=== PATIENT | female | born 1935 | race Two or more races ===

== ENCOUNTER 2025-04-02 08:11 | Inpatient (IN) | payer OTHER, MEDICARE ==
[~2025-04-02] VITALS: Ht 157.5 cm; Wt 60.1 kg
--- NOTE | 2025-04-02 08:29 | ED.PDOC ---
GI ASSESSMENT HPI Comments 89 year old female with PMHx Dementia, HTN presents to the ED via EMS with a chief complaint of abdominal pain onset 2 days. Per EMS, patient's home health nurse called 911 due to patient experiencing diffused abdominal pain, abdominal distension, constipation, nausea, vomiting, poor appetite for the past 2 days. According to home health nurse, patient's baseline is A&Ox1. No other symptoms or modifying factors present at this time. Chief Complaint: Abdominal Pain Time Seen by MD: 08:15 Reviewed Notes: Medications, Allergies Allergies: Coded Allergies: No Known Drug Allergy (Verified Allergy, Unknown, 04/02/25) Information Source: Patient, Emergency Med Personnel Mode of Arrival: EMS Timing: Days Duration: Since onset Prehospital treatment: None Quality: Sharp Severity: Moderate Recent: None Recent Hx of: None Pain Location: Diffuse Modifying Factors: Nothing Associated sign and symptoms: Nausea, Vomiting, Constipation, Abdominal Pain Past Medical History PAST MEDICAL HISTORY: Dementia, HTN Surgical History: Denies all surgeries ROUTE SERVICE MANAGER History: No Pertinent ROUTE SERVICE MANAGER History Family History Family History: Reviewed,noncontributory to illness, No family hx of Cancer, No family hx of DM, No family hx of Heart yelitza, No family hx of HTN, No family hx ofKidney yelitza, No family hx of Liver yelitza, No family hx of Lung yelitza, No family hx of Stroke Social History Smoker: Non-Smoker Alcohol: Denies ETOH Use Drugs: Denies Drug Use Lives In: Home Constitutional: denies: chills, diaphoresis, fatigue, fever, malaise, sweats, weakness, others EENTM: denies: blurred vision, double vision, ear bleeding, ear discharge, ear drainage, ear pain, ear ringing, eye pain, eye redness, hearing loss, mouth pain, mouth swelling, nasal discharge, nose bleeding, nose congestion, nose pain , photophobia, tearing, throat pain, throat swelling, voice changes, others Respiratory: denies: cough, hemoptysis, orthopnea, SOB at rest, shortness of breath, SOB with excertion, stridor, wheezing, others Cardiovascular: denies: chest pain, dizzy spells, diaphoresis, Dyspnea on exertion, edema, irregular heart beat, left arm pain, lightheadedness, palpitations, PND, syncope, others Gastrointestinal: reports: abdomen distended, abdominal pain, constipated, nausea, poor appetite, vomiting; denies: blood streaked bowels, diarrhea, dysphagia, difficulty swallowing, hematemesis, melena, poor fluid intake, rectal bleeding, rectal pain, others Genitourinary: denies: abnormal vagina bleeding, burning, dyspareunia, dysuria, flank pain, frequency, hematuria, incontinence, pain, , vagina discharge, urgency, others Neurological: denies: dizziness, fainting, headache, left sided numbness, left sided weakness, numbness, paresthesia, pre-existing deficit, right sided numbness, right sided weakness, seizure, speech problems, tingling, tremors, weakness, others Musculoskeletal: denies: back pain, gout, joint pain, joint swelling, muscle pa in, muscle stiffness, neck pain, others Integumetry: denies: bruises, change in color, change in hair/nails, dryness, laceration, lesions, lumps, rash, wounds, others Allergic/Immunocompromised: denies: Difficulty Healing, Frequent Infections, Hives, Itching, others Hematologic/Lymphatic: denies: anemia, blood clots, easy bleeding, easy bruising, swollen glands, others Endocrine: denies: excessive hunger, excessive sweating, excessive thirst, excessive urination, flushing, intolerance to cold, intolerance to heat, unexplained weight gain, unexplained weight loss, others Psychiatric: denies: anxiety, bipolar disorder, depression, hopeless, panic disorder, schizophrenia, sleepless, suicidal, others All Other Systems: Reviewed and Negative Physical Exam General Appearance: Moderate Distress HEENT: Normal ENT Inspection, Pharynx Normal, TMs Normal Neck: Full Range of Motion, Non-Tender, Normal, Normal Inspection Respiratory: Chest Non-Tender, Lungs Clear, No Accessory Muscle Use, No Respiratory Distress, Normal Breath Sounds Cardiovascular: Bradycardia, No Edema, No JVD, No Murmur, No Gallop, Normal Peripheral Pulses Breast Exam: Deferred Gastrointestinal: No Organomegaly, Non Tender, No Pulsatile Mass, Normal Bowel Sounds, Soft Genitalia: Deferred Pelvic: Deferred Rectal: Deferred Extremities: No calf tenderness, Normal capillary refill, Normal inspection, Normal range of motion, Non-tender, No pedal edema Musculoskeletal : Apperance: Normal Neurologic: Alert, site coordinator II-XII nml as Tested, No Motor Deficits, Normal Affect, Normal Mood, No Sensory Deficits Cerebellar Function: NOT DONE Reflexes: NOT DONE Skin: Dry, Normal Color, Warm Peripheral Pulses: 3+ Radial (R), 3+ Radial (L) Lymphatic: No Adenopathy EKG EKG : Pulse Rate (adult): 55 Cardiac Rhythm: NSR Was a procedure done? Was a procedure done?: No GI differential Dx Differential Diagnosis: Constipation, Diverticular disease, Esophagitis, Gastritis/PUD, Gastroenteritis, Dehydration, Electrolyte Imbalance, Bacterial, Viral X-Ray, Labs, Meds, VS Vital Signs Date Time Temp Pulse Resp B/P (MAP) Pulse Ox O2 Delivery O2 Flow Rate FiO2 04/02/25 09:25 98.0 52 10 144/79 (100) 97 98.0 04/02/25 08:30 55 04/02/25 08:21 55 04/02/25 08:11 97.7 57 18 134/84 98 97.7 Lab Test 04/02/25 08:45 Range/Units White Blood Count 11.3 H 4.4-10.8 10^3/uL Red Blood Count 5.60 H 4.0-5.20 10^6/uL Hemoglobin 14.4 12.2-16.2 g/dL Hematocrit 45.8 36.0-46.0 % Mean Corpuscular Volume 81.7 80.0-100.0 fL Mean Corpuscular Hemoglobin 25.8 L 28.0-32.0 pg Mean Corpuscular Hemoglobin Concent 31.5 L 32.0-36.0 g/dL Red Cell Distribution Width 14.5 H 11.8-14.3 % Platelet Count 431 140-450 10^3/uL Mean Platelet Volume 8.8 6.9-10.8 fL Neutrophils (%) (Auto) 59.1 37.0-80.0 % Lymphocytes (%) (Auto) 29.5 10.0-50.0 % Monocytes (%) (Auto) 5.9 0.0-12.0 % Eosinophils (%) (Auto) 4.4 0.0-7.0 % Basophils (%) (Auto) 1.1 0.0-2.0 % Neutrophils # (Auto) 6.7 1.6-8.6 10 ^3/uL Lymphocytes # (Auto) 3.3 0.4-5.4 10 ^3/uL Monocytes # (Auto) 0.7 0-1.3 10 ^3/uL Eosinophils # (Auto) 0.5 0-0.8 10 ^3/uL Basophils # (Auto) 0.1 0-0.2 10 ^3/uL Nucleated Red Blood Cells 0.1 % Sodium Level 145 136-145 mmol/L Potassium Level 4.1 3.5-5.1 mmol/L Chloride Level 109 H 98-107 mmol/L Carbon Dioxide Level 26 20-31 mmol/L Anion Gap 10 5-15 Blood Urea Nitrogen 6 L 9-23 mg/dL Creatinine 0.83 0.550-1.02 mg/dL Glomerular Filtration Rate Calc 67 >90 mL/min BUN/Creatinine Ratio 7.2 L 10.0-20.0 Serum Glucose 91 74-106 mg/dL Calcium Level 10.3 8.7-10.4 mg/dL Patient appropriate. History of dementia. WBC slightly elevated. Vitals stable. She has been a diaper. Possible urosepsis causing more confusion than normal. Establish intravenous access. Was given Rocephin. Bradycardia. Continue monitoring. Time of 1ST Reevaluation: 08:45 Reevaluation 1ST: Improved Patient Education/Counseling: Diagnosis, Treatment, Prognosis Family Education/Counseling: No Family Present SEPSIS Sepsis Screen Date sepsis recognized/suspect: Apr 02, 2025 Time Sepsis recognized/suspect: 0810 Recent Procedure: No On Antibiotic Therapy: No Respiratory Rate >20: No Heart Rate >90: No Temp<36 C (96.8 F) or >38.3 C: No SBP <90 or MAP <65 mmHG: No New Acute Mental Status Change: No Is the patient on CPAP, BIPAP,: No Physician Orders Urinalysis (04/02/25 08:27) Vital Signs Date Time Temp Pulse Resp B/P (MAP) Pulse Ox O2 Delivery O2 Flow Rate FiO2 04/02/25 09:25 98.0 52 10 144/79 (100) 97 98.0 04/02/25 08:30 55 04/02/25 08:21 55 04/02/25 08:11 97.7 57 18 134/84 98 97.7 Laboratory Tests Test 04/02/25 08:45 White Blood Count 11.3 10^3/uL (4.4-10.8) H Departure 1 Departure Time of Disposition: 11:35 Impression: Primary Impression: Bradycardia Additional Impression: Sepsis due to urinary tract infection Disposition: ADMITTED INPATIENT Admit to: Med Surg Condition: Guarded Critical Care Note Critical Care Time?: Yes (90 min-critical care time only) Stability Stability form required: No Heart Score Heart Score: Heart Score Response (Comments) Value History Slightly Suspicious 0 EKG Normal 0 Age >65 2 Risk Factors >3 or Hx ASHD 2 Troponin Normal limit 0 Total 4 I personally scribed for DANO KNOTT MD ([email or web address]) on 04/02/25 at 08:29. Electronically submitted by Lin Pride ([email or web address]). I personally scribed for DANO KNOTT MD ([email or web address]) on 04/02/25 at 08:30. Electronically submitted by Lin Pride ([email or web address]). DANO KNOTT MD Apr 02, 2025 08:29
--- NOTE | 2025-04-02 08:40 | ECG ---
[facility] Test Date: 2025-04-02 Test Time: 08:21:51 Pat Name: JESSICA NAVARRO Department: ED Room: 0218T Gender: F Follow Up Rep: LORRI : 1935 Requested By: DANO KNOTT Order Number: [id number] Reading MD: Scooter Rubio Measurements Intervals [place] Rate: 55 P: 35 NH: 54 QRS: 43 QRSD: 101 T: 60 QT: 496 QTc: 475 Interpretive Statements Sinus rhythm Short NH interval Low voltage, precordial leads Electronically Signed On 04-03-2025 17:47:14 PST by Scooter Rubio Please click the below link to view image of tracing.
[2025-04-02 08:59] LABS: Hematocrit 45.8 % (36.0-46.0); Hemoglobin 14.4 g/dL (12.2-16.2); Mean Corpuscular Hemoglobin 25.8 pg (28.0-32.0); Mean Corpuscular Volume 81.7 fL (80.0-100.0); Nucleated Red Blood Cells % 0.1 %
[2025-04-02 09:00] LABS: Potassium 4.1 mmol/L (3.5-5.1); Sodium 145 mmol/L (136-145)
[2025-04-02 09:01] LABS: Anion Gap 10 (5-15); Calcium 10.3 mg/dL (8.7-10.4); Carbon Dioxide 26 mmol/L (20-31)
[2025-04-02 09:03] LABS: Chloride 109 mmol/L (98-107)
[2025-04-02 09:06] LABS: BUN/Creatinine Ratio 7.2 (10.0-20.0); Glucose 91 mg/dL (74-106)
[2025-04-02 09:10] LABS: Blood Urea Nitrogen 6 mg/dL (9-23)
[2025-04-02] MEDS ORDERED: MORPHINE SULFATE INJ 2 MG/ml SYRG IV PRN (11:45)
--- NOTE | 2025-04-02 11:54 | DVHHPRES ---
History of Present Illness Resident Creating Document: MARIA DE JESUS YEUNG RESIDENT History of Present Illness Marino Sanchez is a 89 year old female patient who presents to ED via EMS with chief complaint of abdominal pain which started 2 days before her admission. Patient has dementia, obtained HPI and past medical history from EMR (tried to call son 2 times, but he did not answer phone call). Per home health nurse, patient has been experiencing diffused abdominal pain, distention, constipation, nausea, vomiting and poor appetite 2 days before her admission, prompting her to call [phone]. Per home health nurse, her baseline is A&Ox1. Could not obtain review of systems due to clinical status. Past medical history: Hypertension, dementia Surgical history: Unknown Family history: Unknown Social history: Unknown except that she has a home health nurse. Allergies: Denies Home medication: Unknown Patient seen and examined at bedside. Currently has no new complaint. Will admit for further management, Past Medical History Per HPI Past Surgical History PEr HPI Family History Per HPI Past Social History Per HPI Review of Systems Review of Systems Per HPI Allergies: Coded Allergies: No Known Drug Allergy (Verified Allergy, Unknown, 04/02/25) Exam Vital Signs Vital Signs Date Time Temp Pulse Resp B/P (MAP) Pulse Ox O2 Delivery O2 Flow Rate FiO2 04/02/25 09:25 98.0 52 10 144/79 (100) 97 98.0 Exam Patient lying in bed, in no acute distress General: Allen, afebrile, mucosae are dry Cardiovascular: Normal S1 and S2. No murmurs, gallops or rubs Respiratory: Normal ventilation mechanics. Clear lung sounds on auscultation Abdomen: Soft, mild tenderness on palpation of all quadrants, no organomegaly, normal bowel sounds MSK/skin: Mobilizes 4 limbs. Skin is dry and warm Neurological: Oriented in 2 spheres (person and time). No motor no sensitive deficits. Pupils are isocoric and reactive Labs/Xrays Labs Test 04/02/25 08:45 Range/Units White Blood Count 11.3 H 4.4-10.8 10^3/uL Red Blood Count 5.60 H 4.0-5.20 10^6/uL Hemoglobin 14.4 12.2-16.2 g/dL Hematocrit 45.8 36.0-46.0 % Mean Corpuscular Volume 81.7 80.0-100.0 fL Mean Corpuscular Hemoglobin 25.8 L 28.0-32.0 pg Mean Corpuscular Hemoglobin Concent 31.5 L 32.0-36.0 g/dL Red Cell Distribution Width 14.5 H 11.8-14.3 % Platelet Count 431 140-450 10^3/uL Mean Platelet Volume 8.8 6.9-10.8 fL Neutrophils (%) (Auto) 59.1 37.0-80.0 % Lymphocytes (%) (Auto) 29.5 10.0-50.0 % Monocytes (%) (Auto) 5.9 0.0-12.0 % Eosinophils (%) (Auto) 4.4 0.0-7.0 % Basophils (%) (Auto) 1.1 0.0-2.0 % Neutrophils # (Auto) 6.7 1.6-8.6 10 ^3/uL Lymphocytes # (Auto) 3.3 0.4-5.4 10 ^3/uL Monocytes # (Auto) 0.7 0-1.3 10 ^3/uL Eosinophils # (Auto) 0.5 0-0.8 10 ^3/uL Basophils # (Auto) 0.1 0-0.2 10 ^3/uL Nucleated Red Blood Cells 0.1 % Sodium Level 145 136-145 mmol/L Potassium Level 4.1 3.5-5.1 mmol/L Chloride Level 109 H 98-107 mmol/L Carbon Dioxide Level 26 20-31 mmol/L Anion Gap 10 5-15 Blood Urea Nitrogen 6 L 9-23 mg/dL Creatinine 0.83 0.550-1.02 mg/dL Glomerular Filtration Rate Calc 67 >90 mL/min BUN/Creatinine Ratio 7.2 L 10.0-20.0 Serum Glucose 91 74-106 mg/dL Calcium Level 10.3 8.7-10.4 mg/dL SEPSIS Sepsis Screen Date sepsis recognized/suspect: Apr 02, 2025 Time Sepsis recognized/suspect: 844 Recent Procedure: No On Antibiotic Therapy: No Respiratory Rate >20: No Heart Rate >90: No Temp<36 C (96.8 F) or >38.3 C: No SBP <90 or MAP <65 mmHG: No New Acute Mental Status Change: No Is the patient on CPAP, BIPAP,: No Physician Orders Urinalysis (04/02/25 08:27) Ceftriaxone 1gm/50ml (Rocephin) (04/02/25 11:45) Ct Ab Pel Wo Con-No Oral Or Iv (04/02/25 11:37) Admit (04/02/25 11:37) Code Status (04/02/25 11:37) Acetaminophen Tablet (Tylenol Tablet) (04/02/25 11:45) Ondansetron Hcl (Zofran) (04/02/25 11:45) Complete Blood Count (04/03/25 04:00) Comprehensive Metabolic Panel (04/03/25 04:00) Npo (Nothing By Mouth) Diet (04/02/25 Lunch) Echo 2d Mode Cardiac Dop (04/02/25 11:37) Morphine Sulfate Injection (04/02/25 11:45) Enoxaparin Sodium (Lovenox) (04/03/25 10:00) Vitamin D, 25-Hydroxy (04/02/25 11:37) Vitamin B12 (04/02/25 11:37) Urinalysis (04/02/25 11:37) Thyroid Stimulating Hormone (04/02/25 11:37) PTPTT (04/02/25 11:37) Phosphorus (04/02/25 11:37) Magnesium (04/02/25 11:37) Lipase (04/02/25 11:37) Lipid Panel (04/02/25 11:37) Lactic Acid W/ Reflex Order (04/02/25 11:37) Hemoglobin A1c (04/02/25 11:37) Drug Screen (04/02/25 11:37) Ammonia (04/02/25 11:37) Troponin-I Hs (04/02/25 11:37) Electrocardigram (04/02/25 11:37) Troponin-I Hs (04/02/25 12:37) Troponin-I Hs (04/02/25 14:37) Hepatic Panel (04/02/25 11:50) Pantoprazole (Protonix) (04/02/25 12:00) Pantoprazole (Protonix) (04/02/25 22:00) Chest Xray 1 View (04/02/25 11:51) Vital Signs Date Time Temp Pulse Resp B/P (MAP) Pulse Ox O2 Delivery O2 Flow Rate FiO2 04/02/25 09:25 98.0 52 10 144/79 (100) 97 98.0 04/02/25 08:30 55 04/02/25 08:21 55 04/02/25 08:11 97.7 57 18 134/84 98 97.7 Laboratory Tests Test 04/02/25 08:45 White Blood Count 11.3 10^3/uL (4.4-10.8) H Assessment/Plan Assessment/Plan 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 Keep patient NPO. Ordered Gastrografin of small bowel. Consulted GI specialist Currently under empiric IV antibiotics (ceftriaxone and metronidazole) Ordered cultures. Patient refuses grace and straight cath for urine. Goals of care could not be discussed with patient (son did not milk pickup truck driver phone call). Will consider full code at this time Discussed plan with Dr El and nurses: On Telemetry status. Under empiric IV antibiotics. Ordered Gastrografin study, consulted GI. Patient has poor prognosis Plan discussed with: Patient, Son (Called two times and left a message, could not speak with him.), Other (Nurses) My Orders Orders - MARIA DE JESUS YEUNG RESIDENT Procedure Category Date Status Time Ct Ab Pel Wo Con-No CT 04/02/25 Logged Oral Or Iv 11:37 Admit ADMIT 04/02/25 Transmitted 11:37 Code Status CODE 04/02/25 Transmitted 11:37 Acetaminophen Tablet PHA 04/02/25 Logged (Tylenol Tablet) 11:45 Ondansetron Hcl PHA 04/02/25 Logged (Zofran) 11:45 Complete Blood Count LAB 04/03/25 Verified 04:00 Comprehensive LAB 04/03/25 Verified Metabolic Panel 04:00 Npo (Nothing By DIET 04/02/25 Transmitted Mouth) Diet Lunch Echo 2d Mode Cardiac US 04/02/25 Logged DOP 11:37 Morphine Sulfate PHA 04/02/25 Logged Injection 11:45 Enoxaparin Sodium PHA 04/03/25 Logged (Lovenox) 10:00 Vitamin D, 25-Hydroxy LAB 04/02/25 Logged 11:37 Vitamin B12 LAB 04/02/25 Logged 11:37 Urinalysis LAB 04/02/25 Logged 11:37 Thyroid Stimulating LAB 04/02/25 Logged Hormone 11:37 PTPTT LAB 04/02/25 Logged 11:37 Phosphorus LAB 04/02/25 Logged 11:37 Magnesium LAB 04/02/25 Logged 11:37 Lipase LAB 04/02/25 Logged 11:37 Lipid Panel LAB 04/02/25 Logged 11:37 Lactic Acid W/ Reflex LAB 04/02/25 Logged Order 11:37 Hemoglobin A1c LAB 04/02/25 Logged 11:37 Drug Screen LAB 04/02/25 Logged 11:37 Ammonia LAB 04/02/25 Logged 11:37 Troponin-I Hs LAB 04/02/25 Logged 11:37 Electrocardigram EKG 04/02/25 Logged 11:37 Troponin-I Hs LAB 04/02/25 Logged 12:37 Troponin-I Hs LAB 04/02/25 Logged 14:37 Hepatic Panel LAB 04/02/25 Logged 11:50 Pantoprazole PHA 04/02/25 Logged (Protonix) 12:00 Pantoprazole PHA 04/02/25 Logged (Protonix) 22:00 Chest Xray 1 View XY 04/02/25 Transmitted 11:51 Date of Service: Apr 02, 2025 Billing Provider: JULIO CESAR EL MD Common Visit Codes: [id number] INP/OBS CARE (HIGH) Secondary Visit Codes: [id number] CARE PLAN 30 MINUTES MARIA DE JESUS YEUNG RESIDENT Apr 02, 2025 11:53
[2025-04-02] MEDS: PANTOPRAZOLE 40 MG/10 ML VIAL INJ IV ONE (12:00)
[2025-04-02 12:31] LABS: Lipase 24.0 U/L (12-53)
[2025-04-02 12:31] LABS: INR 1.06 (0.9-1.15); Partial Thromboplastin Time 25.6 SEC (24.5-34.5); Prothrombin Time 11.2 sec (9.3-11.8)
[2025-04-02 12:32] LABS: Magnesium 2.1 mg/dL (1.6-2.6)
[2025-04-02 12:43] LABS: Triglycerides 120.0 mg/dL (< 150)
[2025-04-02 12:45] LABS: Cholesterol 150.0 mg/dL (< 200); HDL Cholesterol 28.0 mg/dL (40-59)
[2025-04-02 13:13] LABS: Lactic Acid w/Reflex 2.1 mmol/L (0.4-2.0)
[2025-04-02 13:29] LABS: Albumin 3.7 g/dL (3.2-4.8); Alkaline Phosphatase 70 U/L (46-116); Bilirubin, Total 0.3 mg/dL (0.2-1.0); Total Protein 6.7 g/dL (5.7-8.2)
[2025-04-02 13:30] LABS: Alanine Aminotransferase < 9 U/L (7-40)
--- NOTE | 2025-04-02 13:54 | DVH ---
EXAM: XY CHEST XRAY 1 VIEW Indication: SOB Technique: Single frontal view of the chest was obtained Comparison: XR CHEST 1 VIEW on DOS: 03/19/25 FINDINGS: Lines and Tubes: None Lungs: No focal consolidation. Pleura: No effusion. No pneumothorax. Cardiomediastinal contours: Unremarkable Bones: No acute osseous abnormality. Status post left shoulder arthroplasty. IMPRESSION: No acute cardiopulmonary disease.
--- NOTE | 2025-04-02 14:23 | DVH ---
COMPUTERIZED TOMOGRAPHY ABDOMEN AND PELVIS WITHOUT CONTRAST REASON FOR EXAM: Abdominal pain COMPARISON: No prior study is available for comparison. TECHNIQUE: Spiral scans were acquired from the diaphragm to the symphysis pubis without intravenous contrast administration. 2-D coronal and sagittal reformatted images were provided. Radiation optimization: All CT scans at this facility use at least one of these dose optimization techniques: Automated exposure control mA and/or kV adjustment per patient size (includes targeted exams where dose is matched to clinical indication) or iterative reconstruction. RADIATION DOSE: CTDI: 17 mGy DLP: 770 mGy-cm FINDINGS: The visualized lung bases are grossly clear. There is no pleural effusion. There is no pericardial effusion. The spleen is not enlarged. The liver is normal in size and contour. There is a 4.9 cm cyst in the right lobe of the liver. Evaluation of the abdominal organs is suboptimal in the absence of intravenous contrast. Evaluation is further degraded by streak artifact from the patient's arms. There are numerous gallstones filling the gallbladder. There is no pericholecystic edema. Unenhanced appearance of the pancreas is grossly unremarkable. The adrenal glands appear grossly normal. The kidneys are similar in size. There is a 2 mm nonobstructive calculus at the interpolar region of the right kidney. There is no hydronephrosis of either kidney. There is no abdominal aortic aneurysm. There is extensive atherosclerosis. The urinary bladder is largely obscured by streak artifact from bilateral hip prostheses. The reproductive organs and the rectum are not well evaluated due to severe metallic streak artifact. There is extensive sigmoid diverticulosis without evidence of diverticulitis. The appendix is normal. There is no Pathologic distention of the small bowel. There is increased attenuation of the fat within the small bowel mesentery ( abena mesentery ). There are a few subcentimeter lymph nodes scattered throughout the mesentery without pathologic enlargement. There is a bladder stimulator with the generator in the subcutaneous fat of the right flank. No acute osseous abnormality is identified. There is chronic appearing mild compression deformity of the superior endplate of L2. IMPRESSION: Increased attenuation of the small bowel mesenteric fat ( abena mesentery ). 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 Correlate clinically. Cholelithiasis without definite evidence of acute cholecystitis. Extensive sigmoid diverticulosis without evidence of diverticulitis. Normal appendix
[2025-04-02 14:29] LABS: Bilirubin, Direct 0.1 mg/dL (<0.3)
[2025-04-02 16:58] VITALS: BP 149/84; PULSE 75; RESP 20; TEMP 98.5; O2SAT 97
[2025-04-02 17:27] VITALS: BP 149/84; PULSE 75; TEMP 98.8; O2SAT 97
[2025-04-02] MEDS: ACETAMINOPHEN 325 MG TAB PO PRN (17:29)
[2025-04-02] MEDS: ONDANSETRON HCL 4 MG/2 ML VIAL IV PRN (17:29)
[2025-04-02] MEDS ORDERED: DONE5TAB80 PO (18:18)
[2025-04-02] MEDS ORDERED: TOPI25TA84 PO (18:18)
[2025-04-02] MEDS ORDERED: SERT-206 PO (18:18)
[2025-04-02] MEDS ORDERED: AMLO1TAB22 PO (18:18)
[2025-04-02] MEDS ORDERED: LEVO88TA4 PO (18:18)
[2025-04-02 20:00] VITALS: PULSE 62
[2025-04-02 21:00] VITALS: BP 146/79; PULSE 66; RESP 14
--- NOTE | 2025-04-02 21:02 | DVHSR ---
APPROVED REPORT EXAM: Two-dimensional and M-mode echocardiogram with Doppler and color Doppler. Blood Pressure: 144/79 mmHg INDICATION SEPSIS RISK FACTORS Height: 62, Weight: 132 DIMENSIONS LVDd 3.7 (3.8-5.7cm) LA (2D) (1.9-4.0cm) Aortic Root 3.5 (2.0-3.7cm) LVDs 2.2 (2.5-4.0cm) LA (MM) (1.9-4.0cm) Aortic Cusp Exc 1.0 (1.5-2.0cm) EF (%) 73.0 (55-70%) Rt. Atrium (1.9-4.0cm) Asc. Aorta cm Mitral Valve Mitral Mitral Stenosis E wave 0.77m/s MV Mean GR. mmHg A wave 1.06m/s MV Peak GR. mmHg E/A ratio 0.7 2D MVA cm2 DECEL Time 191ms PRESS 1/2 Time 41ms IVRT ms Dop MVA 5.42cm2 Aortic Valve Aortic Valve Aortic Stenosis V1 0.99m/s AO Mean GR. 3mmHg V2 1.14m/s AO Peak GR. 5mmHg LVOT Diameter 1.6 (1.8-2.4cm) Doppler LEONEL 1.75cm2 Other Information Technically limited study due to patient laying flat on her back and vomiting during exam. Conclusion NORMAL LV EF AND IS 65% NORMAL VALVES NO EFFUSION AORTIC SCLEROSIS SLIGHTLY DILATED RV
[2025-04-02] MEDS: PANTOPRAZOLE 40 MG/10 ML VIAL INJ IV SCH (22:29)
[2025-04-03] VITALS (8 sets, daily range): BP systolic 134–150; BP diastolic 77–92; PULSE 54–89; RESP 12–18; TEMP 97.1–98; O2SAT 90–99
[2025-04-03 06:00] LABS: Mean Corpuscular Hemoglobin 26.3 pg (28.0-32.0)
[2025-04-03 06:03] LABS: Hematocrit 43.6 % (36.0-46.0); Hemoglobin 14.5 g/dL (12.2-16.2); Mean Corpuscular Volume 79.3 fL (80.0-100.0); Nucleated Red Blood Cells % 0.0 %
[2025-04-03 06:30] LABS: Albumin 3.9 g/dL (3.2-4.8); Alkaline Phosphatase 69 U/L (46-116); Anion Gap 15 (5-15); BUN/Creatinine Ratio 9.2 (10.0-20.0); Bilirubin, Total 0.3 mg/dL (0.2-1.0); Calcium 10.2 mg/dL (8.7-10.4); Carbon Dioxide 23 mmol/L (20-31); Chloride 107 mmol/L (98-107); Glucose 91 mg/dL (74-106); Potassium 3.5 mmol/L (3.5-5.1); Sodium 145 mmol/L (136-145); Total Protein 7.4 g/dL (5.7-8.2)
[2025-04-03 06:33] LABS: Alanine Aminotransferase < 9 U/L (7-40); Blood Urea Nitrogen 7 mg/dL (9-23)
[2025-04-03] MEDS: ENOXAPARIN SOD 40 MG/0.4 ML SYRINGE SC SCH (09:24)
--- NOTE | 2025-04-03 10:47 | DVHPN2 ---
Progress Note Date Seen: Apr 03, 2025 Medical Necessity Reason Pt with a Central, PICC or Fol: No Subjective Patient reports: No new complaints Review of Systems: HEENT:Normal, CVS:Normal, RESPIRATORY:Normal, GI:Normal, :Normal, MSK:Normal, NEURO:Normal Objective vital signs Vital Sign Date Time Temp Pulse Resp B/P (MAP) Pulse Ox O2 Delivery O2 Flow Rate FiO2 04/03/25 08:30 97.8 89 18 142/79 (100) 92 97.8 04/02/25 17:27 Room Air* 0 21 Total Intake and Output 04/02/25 04/02/25 04/03/25 15:00 23:00 07:00 Intake Total 200 ml Balance 200 ml medications Current Medications Medications Dose Ordered Sig/Sunny Route Start Time Stop Time Status Last Admin Dose Admin Acetaminophen 325 mg Q4HP PRN PO 04/02/25 11:45 04/02/25 17:29 325 MG Ondansetron HCl 4 mg Q4HP PRN IV 04/02/25 11:45 04/03/25 04:44 4 MG Morphine Sulfate 2 mg Q4HPRN PRN IV 04/02/25 11:45 Enoxaparin Sodium 40 mg DAILY SC 04/03/25 10:00 Pantoprazole Sodium 40 mg BID IV 04/02/25 22:00 04/03/25 09:23 40 MG Hydralazine HCl 10 mg Q8HP PRN IV 04/02/25 16:45 Ceftriaxone Sodium 50 ml @ 100 mls/hr DAILY@09 IV 04/03/25 09:00 04/03/25 09:23 100 MLS/HR Metronidazole 100 ml @ 100 mls/hr Q8HR IV 04/02/25 06:00 04/03/25 05:56 100 MLS/HR Examination: GENERAL:Normal, HEENT:Normal, NECK:Normal, LUNGS:Normal, CVS:Normal, ABDOMEN:Normal, MSK:Normal, SKIN:Normal, NEURO:Normal, :Normal laboratory and microbiology Laboratory Tests 04/03/25 04:59 Test 04/03/25 04:59 Range/Units Serum Glucose 91 74-106 mg/dL Problem List/Assessment/Plan Problem List/Assessment/Plan #1 abd pain ?sbo: sbft today #2 dementia #3 htn #4 gallstones #5 hypothyroidism #6 ?sclerosing mesenteritis advance care planning- full code- time spent 18 mins Plan discussed with: Patient Date of Service: Apr 03, 2025 Billing Provider: AARON GRECO MD Common Visit Codes: [id number] INP/OBS CARE(HIGH) Secondary Visit Codes: [id number] CARE PLAN 30 MINUTES AARON GRECO MD Apr 03, 2025 10:47
[2025-04-03] MEDS: GASTROGRAFIN 120 ML SOL ONE (11:05)
[2025-04-04] VITALS (8 sets, daily range): BP systolic 141–168; BP diastolic 76–93; PULSE 51–77; RESP 14–20; TEMP 97–98.1; O2SAT 93–99
[2025-04-04 05:28] LABS: Hematocrit 41.7 % (36.0-46.0); Hemoglobin 14.1 g/dL (12.2-16.2); Mean Corpuscular Hemoglobin 26.8 pg (28.0-32.0); Mean Corpuscular Volume 79.4 fL (80.0-100.0); Nucleated Red Blood Cells % 0.1 %
[2025-04-04 05:47] LABS: Anion Gap 13 (5-15); Carbon Dioxide 24 mmol/L (20-31)
[2025-04-04 05:48] LABS: Calcium 10.1 mg/dL (8.7-10.4)
[2025-04-04 05:49] LABS: Chloride 110 mmol/L (98-107); Potassium 3.5 mmol/L (3.5-5.1); Sodium 147 mmol/L (136-145)
[2025-04-04 05:53] LABS: BUN/Creatinine Ratio 8.5 (10.0-20.0); Glucose 90 mg/dL (74-106)
[2025-04-04 06:07] LABS: Blood Urea Nitrogen 7 mg/dL (9-23)
[2025-04-04] MEDS: LEVOTHYROXINE SODIUM 88 MCG TAB PO SCH (06:45)
[2025-04-04] MEDS: hydrALAZINE HCL 20 MG/ML VL IV PRN (07:54)
--- NOTE | 2025-04-04 08:57 | DVHINCON2 ---
Date of service: Apr 04, 2025 Referring Physician Marc Reason for Consultation Abdominal pain Sclerosing mesenteritis Nausea and vomiting History of Present Illness The patient is an elderly 89-year-old female with a history of dementia hypertension admitted with abdominal pain nausea and vomiting, found to have cholelithiasis without cholecystitis, diverticulosis without acute diverticulitis, and CT scan showing sclerosing mesenteritis. Patient had significant nausea and vomiting yesterday and overnight when undergoing small- bowel follow-through. Patient is tolerating water at this time. Per the nurse this morning the patient has not had bowel movement. Patient is not able to give a history. Attempt to place NG tube down overnight was unsuccessful Past Medical History As above Past Surgical History Unable to be obtained Family History: Patient reports no known family medical history. Family History Unable to be obtained Social History Noncontributory Allergies: Coded Allergies: No Known Drug Allergy (Verified Allergy, Unknown, 04/02/25) Home Meds Reported Medications Topiramate (Topiramate) 25 Mg Tab, 1 TAB PO BID 04/02/25 Donepezil Hydrochloride (DONEPEZIL HCL) 5 Mg Tab, 1 TAB PO DAILY 04/02/25 Sertraline Hcl (Sertraline Hcl) 50 Mg Tab, 0 PO DAILY for 30 Days, MG 04/02/25 Amlodipine Besylate (Amlodipine Besylate) 5 Mg Tab, 5 MG PO DAILY for 30 Days, MG 04/02/25 Levothyroxine Sodium (Levothyroxine Sodium) 88 Mcg Tab, 88 MCG PO QAM for 30 Days, MCG 04/02/25 Current Medications Current Medications Medications (Trade) Dose Ordered Sig/Sunny Route PRN Reason Start Time Stop Time Status Last Admin Enoxaparin Sodium (Lovenox) 40 mg DAILY SC 04/03/25 10:00 04/03/25 10:46 DC Ceftriaxone Sodium 50 ml @ 100 mls/hr DAILY@09 IV 04/03/25 09:00 04/04/25 08:36 Levothyroxine Sodium (Synthroid Tablet) 88 mcg QAM@0600 PO 04/04/25 06:00 Review of Systems As per HPI otherwise unable to be obtained Vital Signs Vital Signs Date Time Temp Pulse Resp B/P (MAP) Pulse Ox O2 Delivery O2 Flow Rate FiO2 04/04/25 08:29 97.1 53 18 168/93 (118) 93 97.1 11/26/25 20:00 Nasal Cannula* 2 28 Physical Exam General: Awake, mild distress elderly female sitting up in bed HEENT: NC/AT EOMI PERRLA SOB clear, dry mucous membranes, disheveled appearing Heart: Regular rate and rhythm Abdomen: Soft, nontender nondistended extremities No clubbing cyanosis or edema Labs/Diagnostic Data Labs Test 04/04/25 05:00 04/03/25 04:59 04/02/25 15:12 04/02/25 12:35 Range/Units White Blood Count 11.8 H 4.4-10.8 10^3/uL Red Blood Count 5.25 H 4.0-5.20 10^6/uL Hemoglobin 14.1 12.2-16.2 g/dL Hematocrit 41.7 36.0-46.0 % Mean Corpuscular Volume 79.4 L 80.0-100.0 fL Mean Corpuscular Hemoglobin 26.8 L 28.0-32.0 pg Mean Corpuscular Hemoglobin Concent 33.8 32.0-36.0 g/dL Red Cell Distribution Width 14.5 H 11.8-14.3 % Platelet Count 423 140-450 10^3/uL Mean Platelet Volume 8.7 6.9-10.8 fL Neutrophils (%) (Auto) 70.0 37.0-80.0 % Lymphocytes (%) (Auto) 21.4 10.0-50.0 % Monocytes (%) (Auto) 6.0 0.0-12.0 % Eosinophils (%) (Auto) 1.7 0.0-7.0 % Basophils (%) (Auto) 0.9 0.0-2.0 % Neutrophils # (Auto) 8.3 1.6-8.6 10 ^3/uL Lymphocytes # (Auto) 2.5 0.4-5.4 10 ^3/uL Monocytes # (Auto) 0.7 0-1.3 10 ^3/uL Eosinophils # (Auto) 0.2 0-0.8 10 ^3/uL Basophils # (Auto) 0.1 0-0.2 10 ^3/uL Nucleated Red Blood Cells 0.1 % Sodium Level 147 H 136-145 mmol/L Potassium Level 3.5 3.5-5.1 mmol/L Chloride Level 110 H 98-107 mmol/L Carbon Dioxide Level 24 20-31 mmol/L Anion Gap 13 5-15 Blood Urea Nitrogen 7 L 9-23 mg/dL Creatinine 0.82 0.550-1.02 mg/dL Glomerular Filtration Rate Calc 68 >90 mL/min BUN/Creatinine Ratio 8.5 L 10.0-20.0 Serum Glucose 90 74-106 mg/dL Calcium Level 10.1 8.7-10.4 mg/dL Total Bilirubin 0.3 0.2-1.0 mg/dL Aspartate Amino Transferase (AST) 19 13-40 U/L Alanine Aminotransferase (ALT) < 9 7-40 U/L Alkaline Phosphatase 69 46-116 U/L Total Protein 7.4 5.7-8.2 g/dL Albumin 3.9 3.2-4.8 g/dL Lactic Acid Level 1.5 0.4-2.0 mmol/L Troponin I High Sensitivity 4 </=34 ng/L Ammonia 11 11-32 umol/L Test 04/02/25 08:45 04/02/25 08:43 Range/Units Hemoglobin A1c 5.1 <5.7 % A1C Phosphorus Level 3.0 2.4-5.1 mg/dL Magnesium Level 2.1 1.6-2.6 mg/dL Triglycerides Level 120 < 150 mg/dL Cholesterol Level 150 < 200 mg/dL LDL Cholesterol 101 H < 100 mg/dL HDL Cholesterol 28 L 40-59 mg/dL Lipase 24 12-53 U/L Thyroid Stimulating Hormone (TSH) 1.26 0.55-4.78 uIU/mL Prothrombin Time 11.2 9.3-11.8 sec Prothrombin Time INR 1.06 0.9-1.15 Activated Partial Thromboplast Time 25.6 24.5-34.5 SEC Direct Bilirubin 0.1 <0.3 mg/dL Vitamin B12 Level 458 211-911 pg/mL Vitamin D 25-Hydroxy 65.3 30.0-100 ng/mL Microbiology Date/Time Source Procedure Growth Status 04/02/25 12:35 Blood Blood Culture - Preliminary NO GROWTH AFTER 24 HOURS OF INCUBATION. Resulted IMPRESSION: Increased attenuation of the small bowel mesenteric fat ( abena mesentery ). 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 Correlate clinically. Cholelithiasis without definite evidence of acute cholecystitis. Extensive sigmoid diverticulosis without evidence of diverticulitis. Normal appendix Assessment 1. Dementia 2. Nausea and vomiting 3. Sclerosing mesenteritis 4. Leukocytosis Problems(with codes): (1) Sclerosing mesenteritis (2) Nausea and vomiting Plan/Recommendation 1. Antiemetics 2. Clear liquid diet 3. Follow up with KUB given incomplete small-bowel follow-through overnight 4. No aggressive workup at this time 5. Pain control 6. If the patient has signs of obstruction consider placing a NG tube Plan discussed with: Other KELSEY HUSSEIN MD Apr 04, 2025 08:56
--- NOTE | 2025-04-04 10:17 | DVH ---
ABDOMEN, (KUB) ONE VIEW REASON FOR EXAM: PAIN COMPARISON: None TECHNIQUE: A single view of the abdomen is obtained. FINDINGS: The bowel gas pattern is nonobstructive. There is enteric contrast in the ascending, transverse, descending, and sigmoid colon. There is no supine evidence of pneumoperitoneum. A bladder stimulator projects over the right pelvis. There are bilateral hip prostheses. IMPRESSION: Nonobstructive bowel gas pattern.
--- NOTE | 2025-04-04 16:39 | DVHPNRES ---
Progress Note Date Seen: Apr 04, 2025 Resident Creating Document: NANO COULTER RESIDENT Has the PT tested + for MRSA If YES, has PT been informed?: No Medical Necessity Reason Pt with a Central, PICC or Fol: No Subjective Review of Systems Patient seen and examined at bedside. Patient has some degree of dementia but states that there is no abdominal pain but the patient does feels nausea no episodes of vomiting right now. Patient underwent a KUB which is showing nonobstructive bowel gas pattern but they are still abdomen distention. Small bowel series with Gastrografin was performed but still pending reports. Spoke with nurse regarding results as soon as they are available, if there is any suspicious for SBO, then placed NG tube with negative suction as soon as possible. Patient is currently on clear liquid diet since KUB came back normal. GI is on board following closely. Patient also had CT of the abdomen showing possible sclerosing mesenteritis. Spoke with the son via phone and explained current management we are still pending for small bowel series with Gastrografin reports. Son was updated, concerns and questions were addressed and answered appropriately. ROS Constitutional: Denies weight loss, fever and chills. HEENT: Denies changes in vision and hearing. Respiratory: Denies shortness of breath and cough Cardiovascular: Denies chest discomfort or palpitations GI: Reports abdominal distention, nausea but denies vomiting or diarrhea : Denies dysuria and urinary frequency. Musculoskeletal: Denies myalgias and joint pain Skin: Denies rash and pruritus. Neurological: Denies dizziness, headache, vision or hearing problems Objective vital signs Vital Sign Date Time Temp Pulse Resp B/P (MAP) Pulse Ox O2 Delivery O2 Flow Rate FiO2 04/04/25 12:42 97.6 63 18 145/87 (106) 97 97.6 04/04/25 08:00 Room Air* 0 21 Total Intake and Output 04/03/25 04/03/25 04/04/25 15:00 23:00 07:00 Intake Total 50 ml 200 ml 0 ml Balance 50 ml 200 ml 0 ml medications Current Medications Medications Dose Ordered Sig/Sunny Route Start Time Stop Time Status Last Admin Dose Admin Acetaminophen 325 mg Q4HP PRN PO 04/02/25 11:45 04/03/25 18:24 325 MG Ondansetron HCl 4 mg Q4HP PRN IV 04/02/25 11:45 04/04/25 13:10 4 MG Morphine Sulfate 2 mg Q4HPRN PRN IV 04/02/25 11:45 Pantoprazole Sodium 40 mg BID IV 04/02/25 22:00 04/03/25 22:24 40 MG Hydralazine HCl 10 mg Q8HP PRN IV 04/02/25 16:45 04/04/25 07:54 10 MG Ceftriaxone Sodium 50 ml @ 100 mls/hr DAILY@09 IV 04/03/25 09:00 04/04/25 08:36 100 MLS/HR Metronidazole 100 ml @ 100 mls/hr Q8HR IV 04/02/25 06:00 04/04/25 13:04 100 MLS/HR Levothyroxine Sodium 88 mcg QAM@0600 PO 04/04/25 06:00 Examination Physical Examination General: Patient alert and oriented in person, place and time. Patient has some degree of underlying dementia. Patient following commands. HEENT: Normocephalic, atraumatic, moist mucous membranes Respiratory/pulmonary: Clear lungs bilaterally, no associated crackles or wheezes. Cardiovascular: Normal heart sounds S1 and S2 with no associated murmurs Abdomen: There is mild to moderate abdominal distention, no masses palpated at this time, no significant tenderness to palpation. Extremities: There is no peripheral edema present at the lower extremities. Skin: No rashes or pruritus, there is no sacral edema present at this time. Neurological: Intact cranial nerves with no focal neurologic deficits laboratory and microbiology Laboratory Tests 04/04/25 05:00 Test 04/04/25 05:00 Range/Units Serum Glucose 90 74-106 mg/dL Microbiology Date/Time Source Procedure Growth Status 04/02/25 12:35 Blood Blood Culture - Preliminary NO GROWTH AFTER 48 HOURS OF INCUBATION. 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 TSH is normal range -continue IV ceftriaxone and IV metronidazole for any other possible GI infection. WBCs 11.8 -continue pantoprazole 40 mg IV b.i.d. Goals of care discussed with the son via phone and patient at bedside for 20 minutes, full code Plan discussed with Dr. Mar Plan discussed with: Patient, Son, Other (Nurse) Dietary Evaluation Review Comments: Nutrition Recommendation: 1) Advance diet as medically feasible 2) Consider TPN if NPO > 7 days Expected Outcomes/Goals: GI symptoms to improve Intake to meet >75% estimated needs FU 2-3 days Date of Service: Apr 04, 2025 Billing Provider: DEEPAK MAR MD Common Visit Codes: [id number] INP/OBS CARE(HIGH) Secondary Visit Codes: [id number] CARE PLAN 30 MINUTES (20 minutes) NANO COULTER RESIDENT Apr 04, 2025 16:39 DEEPAK MAR MD Apr 07, 2025 14:19
--- NOTE | 2025-04-04 22:49 | DVH ---
Procedure: XY SMALL BOWEL SERIES-W GASTROGRA Reason for study/Clinical History: R/o obstruction Comparison Study: None Technique: Single contrast small bowel series performed. FINDINGS/IMPRESSION: Initial wig maker view of the abdomen and pelvis appears demonstrates no acute process. At 1 hour there is contrast throughout the majority of the small bowel. It is difficult to be certain if there is any contrast in the cecum due to overlapping small bowel. Suggest an additional follow-up x-ray to confirm passage into the colon.
[2025-04-05] VITALS (8 sets, daily range): BP systolic 138–175; BP diastolic 79–97; PULSE 54–72; RESP 16–18; TEMP 97.1–98.2; O2SAT 94–99
[2025-04-05 07:11] LABS: Hemoglobin 14.0 g/dL (12.2-16.2); Mean Corpuscular Hemoglobin 26.3 pg (28.0-32.0); Mean Corpuscular Volume 79.2 fL (80.0-100.0)
[2025-04-05 07:14] LABS: Hematocrit 42.4 % (36.0-46.0); Nucleated Red Blood Cells % 0.1 %
[2025-04-05 07:19] LABS: Anion Gap 13 (5-15); Calcium 10.2 mg/dL (8.7-10.4); Carbon Dioxide 24 mmol/L (20-31)
[2025-04-05 07:24] LABS: BUN/Creatinine Ratio 6.3 (10.0-20.0); Glucose 82 mg/dL (74-106)
[2025-04-05 07:27] LABS: Blood Urea Nitrogen 5 mg/dL (9-23); Chloride 108 mmol/L (98-107); Potassium 3.4 mmol/L (3.5-5.1); Sodium 145 mmol/L (136-145)
--- NOTE | 2025-04-05 10:20 | PRN ---
Misceleneous Note Note Note April 05, 2025 subjective: Patient continues to have nausea and vomiting Vital Signs Date Time Temp Pulse Resp B/P (MAP) Pulse Ox O2 Delivery O2 Flow Rate FiO2 04/05/25 09:00 97.9 66 16 147/79 (101) 97 97.9 04/04/25 20:00 Room Air* 0 21 General: Awake mild distress heart: t Regular rate and rhythm Abdomen: soft mild to moderate TTP Ext: no C C E Labs Test 04/05/25 05:50 04/04/25 10:40 04/04/25 05:00 04/03/25 04:59 Range/Units White Blood Count 13.3 H 4.4-10.8 10^3/uL Red Blood Count 5.35 H 4.0-5.20 10^6/uL Hemoglobin 14.0 12.2-16.2 g/dL Hematocrit 42.4 36.0-46.0 % Mean Corpuscular Volume 79.2 L 80.0-100.0 fL Mean Corpuscular Hemoglobin 26.3 L 28.0-32.0 pg Mean Corpuscular Hemoglobin Concent 33.1 32.0-36.0 g/dL Red Cell Distribution Width 14.8 H 11.8-14.3 % Platelet Count 438 140-450 10^3/uL Mean Platelet Volume 9.2 6.9-10.8 fL Neutrophils (%) (Auto) 74.5 37.0-80.0 % Lymphocytes (%) (Auto) 18.0 10.0-50.0 % Monocytes (%) (Auto) 4.9 0.0-12.0 % Eosinophils (%) (Auto) 1.9 0.0-7.0 % Basophils (%) (Auto) 0.7 0.0-2.0 % Neutrophils # (Auto) 9.9 H 1.6-8.6 10 ^3/uL Lymphocytes # (Auto) 2.4 0.4-5.4 10 ^3/uL Monocytes # (Auto) 0.7 0-1.3 10 ^3/uL Eosinophils # (Auto) 0.3 0-0.8 10 ^3/uL Basophils # (Auto) 0.1 0-0.2 10 ^3/uL Nucleated Red Blood Cells 0.1 % Sodium Level 145 136-145 mmol/L Potassium Level 3.4 L 3.5-5.1 mmol/L Chloride Level 108 H 98-107 mmol/L Carbon Dioxide Level 24 20-31 mmol/L Anion Gap 13 5-15 Blood Urea Nitrogen 5 L 9-23 mg/dL Creatinine 0.80 0.550-1.02 mg/dL Glomerular Filtration Rate Calc 70 >90 mL/min BUN/Creatinine Ratio 6.3 L 10.0-20.0 Serum Glucose 82 74-106 mg/dL Calcium Level 10.2 8.7-10.4 mg/dL Erythrocyte Sedimentation Rate 18 0-20 mm/hr C-Reactive Protein High Sensitivity 0.30 <1.0 mg/dL Total Bilirubin 0.3 0.2-1.0 mg/dL Aspartate Amino Transferase (AST) 19 13-40 U/L Alanine Aminotransferase (ALT) < 9 7-40 U/L Alkaline Phosphatase 69 46-116 U/L Total Protein 7.4 5.7-8.2 g/dL Albumin 3.9 3.2-4.8 g/dL Test 04/02/25 15:12 04/02/25 12:35 04/02/25 08:45 04/02/25 08:43 Range/Units Lactic Acid Level 1.5 0.4-2.0 mmol/L Troponin I High Sensitivity 4 </=34 ng/L Ammonia 11 11-32 umol/L Hemoglobin A1c 5.1 <5.7 % A1C Phosphorus Level 3.0 2.4-5.1 mg/dL Magnesium Level 2.1 1.6-2.6 mg/dL Triglycerides Level 120 < 150 mg/dL Cholesterol Level 150 < 200 mg/dL LDL Cholesterol 101 H < 100 mg/dL HDL Cholesterol 28 L 40-59 mg/dL Lipase 24 12-53 U/L Thyroid Stimulating Hormone (TSH) 1.26 0.55-4.78 uIU/mL Prothrombin Time 11.2 9.3-11.8 sec Prothrombin Time INR 1.06 0.9-1.15 Activated Partial Thromboplast Time 25.6 24.5-34.5 SEC Direct Bilirubin 0.1 <0.3 mg/dL Vitamin B12 Level 458 211-911 pg/mL Vitamin D 25-Hydroxy 65.3 30.0-100 ng/mL Microbiology Date/Time Source Procedure Growth Status 04/02/25 12:35 Blood Blood Culture - Preliminary NO GROWTH AFTER 48 HOURS OF INCUBATION. Resulted Impression: sclerosing mesenteritis Abdominal pain Leukocytosis Recommendations: Pain control Antiemetics Antibiotics We will follow KELSEY HUSSEIN MD Apr 05, 2025 10:20
--- NOTE | 2025-04-05 13:33 | DVHPNRES ---
Progress Note Date Seen: Apr 05, 2025 Resident Creating Document: NANO COULTER RESIDENT Has the PT tested + for MRSA If YES, has PT been informed?: No Medical Necessity Reason Pt with a Central, PICC or Fol: No Subjective Review of Systems Patient seen and examined at bedside. Patient still complaining of abdominal distention, bloating sensation and nausea without vomiting. Patient is tolerating clear liquid diet. Patient has advanced dementia but is responding appropriately to questions. Called to radiologist regarding small bowel series with Gastrografin and they report that the study was completely unremarkable as well as the KUB that was performed yesterday as well. Per both imaging studies there is no evidence of small-bowel obstruction at this time. We will monitor closely patient symptoms. We will continue IV ceftriaxone and metronidazole and we will start the patient on Reglan 5 mg q.8 IV. We also gave one dose of lactulose for constipation. ROS Constitutional: Denies weight loss, fever and chills. HEENT: Denies changes in vision and hearing. Respiratory: Denies shortness of breath and cough Cardiovascular: Denies chest discomfort or palpitations GI: Reports abdominal distention, nausea but denies vomiting or diarrhea : Denies dysuria and urinary frequency. Musculoskeletal: Denies myalgias and joint pain Skin: Denies rash and pruritus. Neurological: Denies dizziness, headache, vision or hearing problems Objective vital signs Vital Sign Date Time Temp Pulse Resp B/P (MAP) Pulse Ox O2 Delivery O2 Flow Rate FiO2 04/05/25 09:00 97.9 66 16 147/79 (101) 97 97.9 04/04/25 20:00 Room Air* 0 21 Total Intake and Output 04/04/25 04/04/25 04/05/25 15:00 23:00 07:00 Intake Total 150 ml 300 ml 200 ml Balance 150 ml 300 ml 200 ml medications Current Medications Medications Dose Ordered Sig/Sunny Route Start Time Stop Time Status Last Admin Dose Admin Acetaminophen 325 mg Q4HP PRN PO 04/02/25 11:45 04/03/25 18:24 325 MG Ondansetron HCl 4 mg Q4HP PRN IV 04/02/25 11:45 04/05/25 10:00 4 MG Morphine Sulfate 2 mg Q4HPRN PRN IV 04/02/25 11:45 Pantoprazole Sodium 40 mg BID IV 04/02/25 22:00 04/05/25 10:00 40 MG Hydralazine HCl 10 mg Q8HP PRN IV 04/02/25 16:45 04/04/25 07:54 10 MG Ceftriaxone Sodium 50 ml @ 100 mls/hr DAILY@09 IV 04/03/25 09:00 04/05/25 10:30 100 MLS/HR Metronidazole 100 ml @ 100 mls/hr Q8HR IV 04/02/25 06:00 04/05/25 05:20 100 MLS/HR Levothyroxine Sodium 88 mcg QAM@0600 PO 04/04/25 06:00 04/05/25 05:20 88 MCG Examination Physical Examination General: Patient alert and oriented in person, place and time. Patient has some degree of underlying dementia. Patient following commands. HEENT: Normocephalic, atraumatic, moist mucous membranes Respiratory/pulmonary: Clear lungs bilaterally, no associated crackles or wheezes. Cardiovascular: Normal heart sounds S1 and S2 with no associated murmurs Abdomen: There is mild to moderate abdominal distention, no masses palpated at this time, no significant tenderness to palpation. Extremities: There is no peripheral edema present at the lower extremities. Skin: No rashes or pruritus, there is no sacral edema present at this time. Neurological: Intact cranial nerves with no focal neurologic deficits laboratory and microbiology Laboratory Tests 04/05/25 05:50 Test 04/05/25 05:50 Range/Units Serum Glucose 82 74-106 mg/dL Microbiology Date/Time Source Procedure Growth Status 04/02/25 12:35 Blood Blood Culture - Preliminary NO GROWTH AFTER 72 HOURS OF INCUBATION. 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 -Patient steel bloated and having nausea -continue levothyroxine 88 mcg daily for hypothyroidism. TSH is normal range -continue IV ceftriaxone and IV metronidazole for any other possible GI infection. WBCs 13.8 -continue pantoprazole 40 mg IV b.i.d. -Start Reglan 5 mg IV q8 Full code status Plan discussed with Dr. Mar Plan discussed with: Patient, Son, Other (Nurse) My Orders My Orders Orders - NANO COULTER Procedure Category Date Status Time Insert Midline ORDERS 04/05/25 Transmitted 09:25 Metoclopramide PHA 04/05/25 In Process Injection (Reglan 14:00 Dietary Evaluation Review Comments: Nutrition Recommendation: 1) Advance diet as medically feasible 2) Consider TPN if NPO > 7 days Expected Outcomes/Goals: GI symptoms to improve Intake to meet >75% estimated needs FU 2-3 days Date of Service: Apr 05, 2025 Billing Provider: DEEPAK MAR MD Common Visit Codes: [id number] INP/OBS CARE(HIGH) NANO COULTER Apr 05, 2025 13:33 DEEPAK MAR MD Apr 07, 2025 14:22
[2025-04-05] MEDS: METOCLOPRAMIDE HCL 5MG/ml INJ 2ml VIAL IV SCH (13:39)
[2025-04-05] MEDS: POTASSIUM CHLORIDE 20 MEQ, LIDOCAINE 1% (LOCAL ANESTH.) 2 ML in SODIUM CHL 0.9% 100 ML IV ONE (18:30)
[2025-04-05 19:28] LABS: Urine Budding Yeast FEW /hpf (None Seen); Urine Protein, UAD Negative (Negative)
[2025-04-05 20:08] LABS: COVID19 ANTIGEN SOFIA FIA NEGATIVE (NEGATIVE)
[2025-04-06] VITALS (7 sets, daily range): BP systolic 127–144; BP diastolic 73–100; PULSE 48–84; RESP 16–18; TEMP 97–98.1; O2SAT 95–99
--- NOTE | 2025-04-06 11:41 | DVHPN2 ---
Subjective Decreasing abdominal pain; decreasing nausea; no vomiting reported; passed stool; encouraged to eat full liquid diet Reviewed: Care Plan, H&P, Labs, Medications, Previous Orders, Radiology, Other (Consultation) Changes from previous H/P or p: Changes Objective Vitals Vital Signs Date Time Temp Pulse Resp B/P (MAP) Pulse Ox O2 Delivery O2 Flow Rate FiO2 04/06/25 09:00 97.4 65 18 142/100 (114) 99 97.4 04/05/25 20:00 Room Air* 0 21 Intake/Output Intake and Output 04/06/25 07:00 Intake Total 430 ml Balance 430 ml Intake Oral 118 ml IV Total 312 ml # Voids 5 # Bowel Movements 4 General Appearance: Cooperative, No acute distress, Other (Only oriented to person) HEENT: Atraumatic Cardiovascular: Regular rate, Normal S1, Normal S2, No murmurs Abdomen: Normal bowel sounds, Soft, Other (Diffuse tenderness) Neuro: Normal speech, Cranial nerves 3-12 NL Psych/Mental Status: Mental status NL, Mood NL Medications Current Medications Medications Dose Ordered Sig/Sunny Route Start Time Stop Time Status Last Admin Dose Admin Acetaminophen 325 mg Q4HP PRN PO 04/02/25 11:45 04/03/25 18:24 325 MG Ondansetron HCl 4 mg Q4HP PRN IV 04/02/25 11:45 04/06/25 04:53 4 MG Morphine Sulfate 2 mg Q4HPRN PRN IV 04/02/25 11:45 Pantoprazole Sodium 40 mg BID IV 04/02/25 22:00 04/06/25 09:04 40 MG Hydralazine HCl 10 mg Q8HP PRN IV 04/02/25 16:45 04/04/25 07:54 10 MG Ceftriaxone Sodium 50 ml @ 100 mls/hr DAILY@09 IV 04/03/25 09:00 04/06/25 09:04 100 MLS/HR Metronidazole 100 ml @ 100 mls/hr Q8HR IV 04/02/25 06:00 04/06/25 04:55 100 MLS/HR Levothyroxine Sodium 88 mcg QAM@0600 PO 04/04/25 06:00 04/06/25 06:32 88 MCG Metoclopramide HCl 5 mg Q8HR IV 04/05/25 14:00 04/06/25 06:32 5 MG Laboratory Results Laboratory Tests 04/05/25 05:50 Urinalysis Test 04/05/25 18:30 Urine Color Yellow (Yellow) Urine Clarity Clear (Clear) Urine pH 6.0 (5.0-9.0) Urine Specific [place] 1.016 (1.001-1.035) Urine Protein Negative (Negative) Urine Ketones 2+ (Negative) H Urine Blood Negative /uL (Negative) Urine Nitrite Negative (Negative) Urine Bilirubin Negative (Negative) Urine Urobilinogen Normal mg/dL (Negative) Urine Leukocyte Esterase Trace /uL (Negative) Urine RBC 3 /hpf (0 - 4) Urine Microscopic WBC 9 /HPF (0-5) H Urine Squamous Epithelial Cells Few /hpf (<5) Urine Bacteria Few /hpf (None Seen) H Urine Mucus Few (None Seen) Urine Yeast (Budding) Few /hpf (None Seen) Urine Glucose Normal mg/dL (Normal) Microbiology Microbiology Date/Time Source Procedure Growth Status 04/05/25 18:30 Urine - [place] Urine Culture - Preliminary Resulted 04/02/25 12:35 Blood Blood Culture - Preliminary NO GROWTH AFTER 72 HOURS OF INCUBATION. Resulted Labs and/or images reviewed: Labs reviewed by me, Image(s) reviewed by me Assessment/Plan Assessment/Plan Covering Dr. 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 Suspected sepsis with leukocytosis due to suspected infectious colitis Small-bowel obstruction ruled out Dementia with behavioral changes Electrolyte imbalance due to decreased oral intake Essential hypertension Hypothyroidism Reviewed the available lab work and imaging studies Continue antihypertensive medications and adjust according to blood pressure monitoring Restarted the patient on her home dementia medications including quetiapine Continue IV antibiotics Gave one dose of IV steroids and started on oral prednisone Encouraged the patient to advance her diet To advance diet as tolerated; evaluated by GI Continue scheduled IV Reglan along with IV Zofran as needed Continue pain management as indicated To replace electrolytes as indicated Continue levothyroxine Continue monitoring Goals of care rediscussed with the patient's son for 20 minutes; continues to be full code Late Entry. This medical document was created using an electronic medical record system with computerized dictation system. Although this document has been carefully reviewed, there might still be some phonetic and typographical errors. These areas are purely typographical due to imperfections of the software programs, and do not reflect any compromise in the patient's medical care. Plan discussed with: Son, Other (Nurse) Date of Service: Apr 06, 2025 Billing Provider: DEEPAK MAR MD Common Visit Codes: [id number] INP/OBS CARE(HIGH) Secondary Visit Codes: [id number] CARE PLAN 30 MINUTES (20 minutes) DEEPAK MAR MD Apr 06, 2025 11:41
[2025-04-06] MEDS: SERTRALINE HCL 50 MG TAB PO ONE (14:05)
[2025-04-06] MEDS: POTASSIUM EFFERVESENT TAB 25 MEQ PO ONE (14:06)
[2025-04-06] MEDS: methylPREDNISolone SOD SUCC 125 MG/2 ML VL IV ONE (14:06)
[2025-04-06] MEDS: DONEPEZIL HYDROCHLORIDE 5 MG TAB PO SCH (22:24)
[2025-04-07] VITALS (9 sets, daily range): BP systolic 126–172; BP diastolic 60–101; PULSE 69–94; RESP 14–18; TEMP 97.4–98.5; O2SAT 95–98
[2025-04-07 06:45] LABS: Nucleated Red Blood Cells % 0.1 %
[2025-04-07 06:47] LABS: Hematocrit 40.1 % (36.0-46.0); Hemoglobin 13.3 g/dL (12.2-16.2); Mean Corpuscular Hemoglobin 26.2 pg (28.0-32.0); Mean Corpuscular Volume 79.1 fL (80.0-100.0)
[2025-04-07 06:48] LABS: Anion Gap 11 (5-15); Carbon Dioxide 24 mmol/L (20-31); Sodium 143 mmol/L (136-145)
[2025-04-07 06:50] LABS: Calcium 9.8 mg/dL (8.7-10.4)
[2025-04-07 06:51] LABS: Chloride 108 mmol/L (98-107); Potassium 2.9 mmol/L (3.5-5.1)
[2025-04-07 06:54] LABS: BUN/Creatinine Ratio 8.6 (10.0-20.0); Glucose 102 mg/dL (74-106)
[2025-04-07 06:55] LABS: Magnesium 2.0 mg/dL (1.6-2.6)
[2025-04-07 07:02] LABS: Blood Urea Nitrogen 6 mg/dL (9-23)
[2025-04-07] MEDS: SERTRALINE HCL 50 MG TAB PO SCH (08:20)
[2025-04-07] MEDS: predniSONE 20 MG TAB PO SCH (08:20)
[2025-04-07] MEDS: POTASSIUM EFFERVESENT TAB 25 MEQ PO ONE (12:23)
--- NOTE | 2025-04-07 14:35 | DVHPN2 ---
Subjective Had some full liquid diet with no nausea or vomiting; abdominal pain is controlled with pain killers Reviewed: Care Plan, H&P, Labs, Medications, Previous Orders, Radiology, Other Changes from previous H/P or p: Changes Objective Vitals Vital Signs Date Time Temp Pulse Resp B/P (MAP) Pulse Ox O2 Delivery O2 Flow Rate FiO2 04/07/25 13:00 97.7 94 17 130/70 (90) 98 97.7 04/07/25 08:00 Room Air* 0 21 Intake/Output Intake and Output 04/07/25 07:00 Intake Total 650 ml Output Total 625 ml Balance 25 ml Intake Oral 350 ml IV Total 300 ml Output Urine Total 625 ml # Bowel Movements 2 General Appearance: Cooperative, No acute distress, Other (Only oriented to person) HEENT: Atraumatic Cardiovascular: Regular rate, Normal S1, Normal S2, No murmurs Abdomen: Normal bowel sounds, Soft, Other (Diffuse tenderness) Neuro: Normal speech, Cranial nerves 3-12 NL Psych/Mental Status: Mental status NL, Mood NL Medications Current Medications Medications Dose Ordered Sig/Sunny Route Start Time Stop Time Status Last Admin Dose Admin Acetaminophen 325 mg Q4HP PRN PO 04/02/25 11:45 04/03/25 18:24 325 MG Ondansetron HCl 4 mg Q4HP PRN IV 04/02/25 11:45 04/06/25 04:53 4 MG Morphine Sulfate 2 mg Q4HPRN PRN IV 04/02/25 11:45 Pantoprazole Sodium 40 mg BID IV 04/02/25 22:00 04/07/25 08:20 40 MG Hydralazine HCl 10 mg Q8HP PRN IV 04/02/25 16:45 04/07/25 05:38 10 MG Ceftriaxone Sodium 50 ml @ 100 mls/hr DAILY@09 IV 04/03/25 09:00 04/07/25 08:05 100 MLS/HR Metronidazole 100 ml @ 100 mls/hr Q8HR IV 04/02/25 06:00 04/07/25 12:23 100 MLS/HR Levothyroxine Sodium 88 mcg QAM@0600 PO 04/04/25 06:00 04/07/25 05:24 88 MCG Metoclopramide HCl 5 mg Q8HR IV 04/05/25 14:00 04/07/25 12:23 5 MG Donepezil HCl 5 mg HS PO 04/06/25 22:00 04/06/25 22:24 5 MG Quetiapine Fumarate 50 mg BID PO 04/06/25 12:00 04/07/25 08:20 50 MG Sertraline HCl 25 mg DAILY PO 04/07/25 10:00 04/07/25 08:20 25 MG Prednisone 40 mg DAILY PO 04/07/25 10:00 04/07/25 08:20 40 MG Amlodipine Besylate 2.5 mg DAILY PO 04/07/25 10:00 04/07/25 08:19 2.5 MG Laboratory Results Laboratory Tests 04/07/25 06:03 Chemistry Test 04/07/25 06:03 Calcium Level 9.8 mg/dL (8.7-10.4) Magnesium Level 2.0 mg/dL (1.6-2.6) Urinalysis Test 04/05/25 18:30 Urine Color Yellow (Yellow) Urine Clarity Clear (Clear) Urine pH 6.0 (5.0-9.0) Urine Specific [place] 1.016 (1.001-1.035) Urine Protein Negative (Negative) Urine Ketones 2+ (Negative) H Urine Blood Negative /uL (Negative) Urine Nitrite Negative (Negative) Urine Bilirubin Negative (Negative) Urine Urobilinogen Normal mg/dL (Negative) Urine Leukocyte Esterase Trace /uL (Negative) Urine RBC 3 /hpf (0 - 4) Urine Microscopic WBC 9 /HPF (0-5) H Urine Squamous Epithelial Cells Few /hpf (<5) Urine Bacteria Few /hpf (None Seen) H Urine Mucus Few (None Seen) Urine Yeast (Budding) Few /hpf (None Seen) Urine Glucose Normal mg/dL (Normal) Microbiology Microbiology Date/Time Source Procedure Growth Status 04/05/25 18:30 Nose MRSA Screen - Final Complete 04/05/25 18:30 Urine - [place] Urine Culture - Preliminary Resulted 04/02/25 12:35 Blood Blood Culture - Final NO GROWTH AFTER 5 DAYS OF INCUBATION. Complete Labs and/or images reviewed: Labs reviewed by me, Image(s) reviewed by me Assessment/Plan Assessment/Plan Covering Dr. 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 Small-bowel obstruction ruled out Questionable yeast UTI Dementia with behavioral changes Electrolyte imbalance due to decreased oral intake Essential hypertension Physical deconditioning Hypokalemia due to decreased oral intake; normal magnesium level of 2.0 Hypothyroidism Reviewed the available lab work including cultures Reviewed imaging studies Continue antihypertensive medications and adjust according to blood pressure monitoring Continue home dementia medications including quetiapine Continue IV antibiotics; given one dose of oral fluconazole Given one dose of IV steroids; to continue oral prednisone Encouraged the patient to advance her diet as tolerated Evaluated by GI Continue scheduled IV Reglan along with IV Zofran as needed Continue pain management as indicated To replace electrolytes orally as indicated Continue levothyroxine Consulted PT and social services director for discharge planning including SNF placement Downgraded from telemetry to medical/surgery as oral electrolyte replacement will be orally now Continue monitoring This medical document was created using an electronic medical record system with computerized dictation system. Although this document has been carefully reviewed, there might still be some phonetic and typographical errors. These areas are purely typographical due to imperfections of the software programs, and do not reflect any compromise in the patient's medical care. Plan discussed with: Other (Nurse; called the patient's son but no answer) My Orders Orders - DEEPAK MAR MD Procedure Category Date Status Time Pt Request For Service PT 04/07/25 Logged 11:48 * Tobacco Drummer CONS 04/07/25 Transmitted Consult Basic Metabolic Panel LAB 04/08/25 Verified 04:00 Complete Blood Count LAB 04/08/25 Verified 04:00 Magnesium LAB 04/08/25 Verified 04:00 Fluconazole Tablet PHA 04/07/25 Logged (Diflucan Tablet) 14:30 Transfer Orders XFER 04/07/25 Transmitted 14:20 Date of Service: Apr 07, 2025 Billing Provider: DEEPAK MAR MD Common Visit Codes: [id number] INP/OBS CARE(HIGH) DEEPAK MAR MD Apr 07, 2025 14:35
[2025-04-07] MEDS: FLUCONAZOLE 100 MG TAB PO ONE (16:39)
--- NOTE | 2025-04-07 22:08 | DVHPN2 ---
Progress Note - Dictate Date Seen: Apr 07, 2025 Has the PT tested + for MRSA If YES, has PT been informed?: No Medical Necessity Reason Pt with a Central, PICC or Fol: No Subjective No new complaints Patient is sleeping comfortably Multiple bowel movements recorded Small-bowel series and abdominal x-ray today show no evidence of obstruction with contrast throughout the colon vital signs Vital Sign Date Time Temp Pulse Resp B/P (MAP) Pulse Ox O2 Delivery O2 Flow Rate FiO2 04/07/25 21:00 98.5 78 17 148/89 (108) 97 98.5 04/07/25 08:00 Room Air* 0 21 Total Intake and Output 04/06/25 04/06/25 04/07/25 15:00 23:00 07:00 Intake Total 100 ml 400 ml 150 ml Output Total 200 ml 425 ml Balance 100 ml 200 ml -275 ml medications Current Medications Medications Dose Ordered Sig/Sunny Route Start Time Stop Time Status Last Admin Dose Admin Acetaminophen 325 mg Q4HP PRN PO 04/02/25 11:45 04/03/25 18:24 325 MG Ondansetron HCl 4 mg Q4HP PRN IV 04/02/25 11:45 04/06/25 04:53 4 MG Morphine Sulfate 2 mg Q4HPRN PRN IV 04/02/25 11:45 Pantoprazole Sodium 40 mg BID IV 04/02/25 22:00 04/07/25 08:20 40 MG Hydralazine HCl 10 mg Q8HP PRN IV 04/02/25 16:45 04/07/25 05:38 10 MG Ceftriaxone Sodium 50 ml @ 100 mls/hr DAILY@09 IV 04/03/25 09:00 04/07/25 08:05 100 MLS/HR Metronidazole 100 ml @ 100 mls/hr Q8HR IV 04/02/25 06:00 04/07/25 12:23 100 MLS/HR Levothyroxine Sodium 88 mcg QAM@0600 PO 04/04/25 06:00 04/07/25 05:24 88 MCG Metoclopramide HCl 5 mg Q8HR IV 04/05/25 14:00 04/07/25 12:23 5 MG Donepezil HCl 5 mg HS PO 04/06/25 22:00 04/06/25 22:24 5 MG Quetiapine Fumarate 50 mg BID PO 04/06/25 12:00 04/07/25 08:20 50 MG Sertraline HCl 25 mg DAILY PO 04/07/25 10:00 04/07/25 08:20 25 MG Prednisone 40 mg DAILY PO 04/07/25 10:00 04/07/25 08:20 40 MG Amlodipine Besylate 2.5 mg DAILY PO 04/07/25 10:00 04/07/25 08:19 2.5 MG objective General: Sleeping, no acute distress heart: t Regular rate and rhythm Abdomen: soft mild to moderate TTP Ext: no C C E laboratory and microbiology Laboratory Tests 04/07/25 06:03 Test 04/07/25 06:03 Range/Units Serum Glucose 102 74-106 mg/dL Problems(with codes): (1) Sclerosing mesenteritis (2) Nausea and vomiting (3) Sepsis due to urinary tract infection (4) Cholelithiasis (5) Hypokalemia Prognosis PLAN Continue IV fluid hydration Advance diet as tolerated Continue IV antibiotics Supportive care GI will follow up Dietary Evaluation Review Comments: Nutrition Recommendation: 1) Advance diet as medically feasible 2) Consider TPN if NPO > 7 days Expected Outcomes/Goals: GI symptoms to improve Intake to meet >75% estimated needs FU 2-3 days Plan discussed with: Patient JOSE SOTO MD Apr 07, 2025 22:08
[2025-04-08] VITALS (7 sets, daily range): BP systolic 125–151; BP diastolic 74–90; PULSE 70–79; RESP 17–18; TEMP 97.6–98.1; O2SAT 95–98
[2025-04-08 08:36] LABS: Hematocrit 44.3 % (36.0-46.0); Hemoglobin 14.2 g/dL (12.2-16.2); Mean Corpuscular Hemoglobin 25.3 pg (28.0-32.0); Mean Corpuscular Volume 79.2 fL (80.0-100.0)
[2025-04-08 08:39] LABS: Anion Gap 12 (5-15); Carbon Dioxide 29 mmol/L (20-31); Chloride 105 mmol/L (98-107)
[2025-04-08 08:41] LABS: Calcium 9.7 mg/dL (8.7-10.4)
[2025-04-08 08:45] LABS: Glucose 100 mg/dL (74-106)
[2025-04-08 08:46] LABS: Magnesium 1.8 mg/dL (1.6-2.6)
[2025-04-08 08:48] LABS: BUN/Creatinine Ratio 7.6 (10.0-20.0); Blood Urea Nitrogen < 5 mg/dL (9-23); Potassium 2.7 mmol/L (3.5-5.1); Sodium 146 mmol/L (136-145)
[2025-04-08 09:09] LABS: Total Cells Counted 100.0 (100)
[2025-04-08] MEDS: LACTULOSE 20Gm/30ML SOLN PO ONE (09:44)
--- NOTE | 2025-04-08 12:18 | DVHPN2 ---
Subjective Patient states that her abdominal pain has improved. Reviewed: Care Plan, H&P, Labs, Medications, Previous Orders, Radiology, Other Changes from previous H/P or p: No Changes Objective Vitals Vital Signs Date Time Temp Pulse Resp B/P (MAP) Pulse Ox O2 Delivery O2 Flow Rate FiO2 04/08/25 09:43 142/79 04/08/25 09:00 97.7 72 17 97 97.7 04/07/25 20:00 Room Air* 0 21 Intake/Output Intake and Output 04/08/25 07:00 Intake Total 640 ml Output Total 1350 ml Balance -710 ml Intake Oral 440 ml IV Total 200 ml Output Urine Total 1350 ml General Appearance: Cooperative, No acute distress, Other (Only oriented to person) HEENT: Atraumatic Cardiovascular: Regular rate, Normal S1, Normal S2, No murmurs Abdomen: Normal bowel sounds, Soft, Other (Diffuse tenderness) Neuro: Normal speech, Cranial nerves 3-12 NL Skin: Dry, Intact Psych/Mental Status: Mental status NL, Mood NL Medications Current Medications Medications Dose Ordered Sig/Sunny Route Start Time Stop Time Status Last Admin Dose Admin Acetaminophen 325 mg Q4HP PRN PO 04/02/25 11:45 04/03/25 18:24 325 MG Ondansetron HCl 4 mg Q4HP PRN IV 04/02/25 11:45 04/06/25 04:53 4 MG Morphine Sulfate 2 mg Q4HPRN PRN IV 04/02/25 11:45 Pantoprazole Sodium 40 mg BID IV 04/02/25 22:00 04/08/25 09:42 40 MG Hydralazine HCl 10 mg Q8HP PRN IV 04/02/25 16:45 04/08/25 05:23 10 MG Ceftriaxone Sodium 50 ml @ 100 mls/hr DAILY@09 IV 04/03/25 09:00 04/08/25 09:43 100 MLS/HR Metronidazole 100 ml @ 100 mls/hr Q8HR IV 04/02/25 06:00 04/08/25 05:20 100 MLS/HR Levothyroxine Sodium 88 mcg QAM@0600 PO 04/04/25 06:00 04/08/25 05:20 88 MCG Metoclopramide HCl 5 mg Q8HR IV 04/05/25 14:00 04/08/25 05:20 5 MG Donepezil HCl 5 mg HS PO 04/06/25 22:00 04/07/25 21:44 5 MG Quetiapine Fumarate 50 mg BID PO 04/06/25 12:00 04/08/25 09:42 50 MG Sertraline HCl 25 mg DAILY PO 04/07/25 10:00 04/08/25 09:46 25 MG Prednisone 40 mg DAILY PO 04/07/25 10:00 04/08/25 09:42 40 MG Amlodipine Besylate 2.5 mg DAILY PO 04/07/25 10:00 04/08/25 09:43 2.5 MG Laboratory Results Laboratory Tests 04/08/25 07:47 Chemistry Test 04/08/25 07:47 Calcium Level 9.7 mg/dL (8.7-10.4) Magnesium Level 1.8 mg/dL (1.6-2.6) Urinalysis Test 04/05/25 18:30 Urine Color Yellow (Yellow) Urine Clarity Clear (Clear) Urine pH 6.0 (5.0-9.0) Urine Specific [place] 1.016 (1.001-1.035) Urine Protein Negative (Negative) Urine Ketones 2+ (Negative) H Urine Blood Negative /uL (Negative) Urine Nitrite Negative (Negative) Urine Bilirubin Negative (Negative) Urine Urobilinogen Normal mg/dL (Negative) Urine Leukocyte Esterase Trace /uL (Negative) Urine RBC 3 /hpf (0 - 4) Urine Microscopic WBC 9 /HPF (0-5) H Urine Squamous Epithelial Cells Few /hpf (<5) Urine Bacteria Few /hpf (None Seen) H Urine Mucus Few (None Seen) Urine Yeast (Budding) Few /hpf (None Seen) Urine Glucose Normal mg/dL (Normal) Microbiology Microbiology Date/Time Source Procedure Growth Status 04/05/25 18:30 Nose MRSA Screen - Final Complete 04/05/25 18:30 Urine - [place] Urine Culture - Final Presumptive Kristy albicans Complete 04/02/25 12:35 Blood Blood Culture - Final NO GROWTH AFTER 5 DAYS OF INCUBATION. Complete Labs and/or images reviewed: Labs reviewed by me, Image(s) reviewed by me Assessment/Plan Assessment/Plan Impression: -abdominal pain, probably secondary to infectious colitis -accelerated hypertension -dementia -sepsis -hypokalemia Plan: -continue antibiotic therapy -stool specimen -potassium replacement -GI consultation -repeat labs in a.m. Total time spent with patient discussing and formulating plan of care: 35 minutes. This medical document was created using an electronic medical record system with [employer] dictation system. Although this document has been carefully reviewed, there may still be some phonetic and typographical errors. These areas are purely typographical due to imperfections of the software programs, and do not reflect any compromise in the patient's medical care. Plan discussed with: Patient, Other (RN) My Orders Orders - ANA DESIR NP Procedure Category Date Status Time Stool Bacterial JESSY 04/08/25 Uncollected Culture 11:33 Stool Wbc LAB 04/08/25 Logged 11:33 Potassium Chloride PHA 04/08/25 In Process (Potassium Chloride). 11:45 Date of Service: Apr 08, 2025 Billing Provider: ANA DESIR NP Common Visit Codes: [id number] INP/OBS CARE(HIGH) ANA DESIR NP Apr 08, 2025 12:18
[2025-04-08] MEDS: POTASSIUM CHLORIDE 60 MEQ, LIDOCAINE 1% (LOCAL ANESTH.) 6 ML in SODIUM CHL 0.9% 500 ML IV ONE (14:45)
--- NOTE | 2025-04-08 21:19 | DVHPN2 ---
Progress Note - Dictate Date Seen: Apr 08, 2025 Has the PT tested + for MRSA If YES, has PT been informed?: No Medical Necessity Reason Pt with a Central, PICC or Fol: No Subjective No new complaints Patient is sleeping comfortably Multiple bowel movements recorded Small-bowel series and abdominal x-ray today show no evidence of obstruction with contrast throughout the colon vital signs Vital Sign Date Time Temp Pulse Resp B/P (MAP) Pulse Ox O2 Delivery O2 Flow Rate FiO2 04/08/25 17:00 98.1 78 17 151/88 (109) 97 98.1 04/08/25 08:00 Room Air* 0 21 Total Intake and Output 04/07/25 04/07/25 04/08/25 15:00 23:00 07:00 Intake Total 440 ml 200 ml Output Total 550 ml 800 ml Balance -110 ml -600 ml medications Current Medications Medications Dose Ordered Sig/Sunny Route Start Time Stop Time Status Last Admin Dose Admin Acetaminophen 325 mg Q4HP PRN PO 04/02/25 11:45 04/03/25 18:24 325 MG Ondansetron HCl 4 mg Q4HP PRN IV 04/02/25 11:45 04/06/25 04:53 4 MG Morphine Sulfate 2 mg Q4HPRN PRN IV 04/02/25 11:45 Pantoprazole Sodium 40 mg BID IV 04/02/25 22:00 04/08/25 09:42 40 MG Hydralazine HCl 10 mg Q8HP PRN IV 04/02/25 16:45 04/08/25 05:23 10 MG Ceftriaxone Sodium 50 ml @ 100 mls/hr DAILY@09 IV 04/03/25 09:00 04/08/25 09:43 100 MLS/HR Metronidazole 100 ml @ 100 mls/hr Q8HR IV 04/02/25 06:00 04/08/25 14:39 100 MLS/HR Levothyroxine Sodium 88 mcg QAM@0600 PO 04/04/25 06:00 04/08/25 05:20 88 MCG Metoclopramide HCl 5 mg Q8HR IV 04/05/25 14:00 04/08/25 14:39 5 MG Donepezil HCl 5 mg HS PO 04/06/25 22:00 04/07/25 21:44 5 MG Quetiapine Fumarate 50 mg BID PO 04/06/25 12:00 04/08/25 09:42 50 MG Sertraline HCl 25 mg DAILY PO 04/07/25 10:00 04/08/25 09:46 25 MG Prednisone 40 mg DAILY PO 04/07/25 10:00 04/08/25 09:42 40 MG Amlodipine Besylate 2.5 mg DAILY PO 04/07/25 10:00 04/08/25 09:43 2.5 MG objective General: Sleeping, no acute distress heart: t Regular rate and rhythm Abdomen: soft mild to moderate TTP Ext: no C C E laboratory and microbiology Laboratory Tests 04/08/25 07:47 Test 04/08/25 07:47 Range/Units Serum Glucose 100 74-106 mg/dL Problems(with codes): (1) Hypokalemia (2) Cholelithiasis (3) Sclerosing mesenteritis (4) Nausea and vomiting (5) Sepsis due to urinary tract infection Prognosis PLAN Continue IV fluid hydration Advance diet as tolerated Continue IV antibiotics Supportive care GI will follow up Dietary Evaluation Review Comments: Nutrition Recommendation: 1) Advance diet as medically feasible 2) Consider TPN if NPO > 7 days Expected Outcomes/Goals: GI symptoms to improve Intake to meet >75% estimated needs FU 2-3 days Plan discussed with: Patient JOSE SOTO MD Apr 08, 2025 21:19
[2025-04-09] VITALS (10 sets, daily range): BP systolic 119–177; BP diastolic 72–101; PULSE 61–85; RESP 16–18; TEMP 97.1–98.6; O2SAT 95–99
[2025-04-09 06:58] LABS: Anion Gap 8 (5-15); Carbon Dioxide 29 mmol/L (20-31); Potassium 3.5 mmol/L (3.5-5.1)
[2025-04-09 06:59] LABS: Calcium 9.5 mg/dL (8.7-10.4)
[2025-04-09 07:04] LABS: Glucose 91 mg/dL (74-106)
[2025-04-09 07:05] LABS: Magnesium 1.9 mg/dL (1.6-2.6)
[2025-04-09 07:16] LABS: BUN/Creatinine Ratio 8.3 (10.0-20.0); Blood Urea Nitrogen < 5 mg/dL (9-23); Chloride 109 mmol/L (98-107); Sodium 146 mmol/L (136-145)
[2025-04-09 10:25] LABS: Hematocrit 39.3 % (36.0-46.0); Hemoglobin 12.7 g/dL (12.2-16.2); Mean Corpuscular Hemoglobin 25.7 pg (28.0-32.0); Mean Corpuscular Volume 79.3 fL (80.0-100.0); Nucleated Red Blood Cells % 0.1 %
[2025-04-09] MEDS ORDERED: METR-344 PO (13:36)
[2025-04-09] MEDS ORDERED: FLUC100T PO (13:39)
--- NOTE | 2025-04-09 13:42 | DVHDS2 ---
Discharge Summary Date of Admission Apr 02, 2025 at 11:37 Date of Discharge: Apr 09, 2025 Admitting Diagnosis Sepsis secondary to acute abdominal infection Labs/Diagnostic Data: Laboratory Results Test 04/09/25 05:42 04/08/25 07:47 04/05/25 18:30 04/04/25 10:40 White Blood Count 13.5 10^3/uL (4.4-10.8) Red Blood Count 4.95 10^6/uL (4.0-5.20) Hemoglobin 12.7 g/dL (12.2-16.2) Hematocrit 39.3 % (36.0-46.0) Mean Corpuscular Volume 79.3 fL (80.0-100.0) Mean Corpuscular Hemoglobin 25.7 pg (28.0-32.0) Mean Corpuscular Hemoglobin Concent 32.4 g/dL (32.0-36.0) Red Cell Distribution Width 15.1 % (11.8-14.3) Platelet Count 357 10^3/uL (140-450) Mean Platelet Volume 10.0 fL (6.9-10.8) Neutrophils (%) (Auto) 70.0 % (37.0-80.0) Lymphocytes (%) (Auto) 20.5 % (10.0-50.0) Monocytes (%) (Auto) 8.5 % (0.0-12.0) Eosinophils (%) (Auto) 0.7 % (0.0-7.0) Basophils (%) (Auto) 0.3 % (0.0-2.0) Neutrophils # (Auto) 9.4 10 ^3/uL (1.6-8.6) Lymphocytes # (Auto) 2.8 10 ^3/uL (0.4-5.4) Monocytes # (Auto) 1.1 10 ^3/uL (0-1.3) Eosinophils # (Auto) 0.1 10 ^3/uL (0-0.8) Basophils # (Auto) 0 10 ^3/uL (0-0.2) Nucleated Red Blood Cells 0.1 % Sodium Level 146 mmol/L (136-145) Potassium Level 3.5 mmol/L (3.5-5.1) Chloride Level 109 mmol/L (98-107) Carbon Dioxide Level 29 mmol/L (20-31) Anion Gap 8 (5-15) Blood Urea Nitrogen < 5 mg/dL (9-23) Creatinine 0.60 mg/dL (0.550-1.02) Glomerular Filtration Rate Calc 86 mL/min (>90) BUN/Creatinine Ratio 8.3 (10.0-20.0) Serum Glucose 91 mg/dL (74-106) Calcium Level 9.5 mg/dL (8.7-10.4) Magnesium Level 1.9 mg/dL (1.6-2.6) Differential Total Cells Counted 100.0 (100) Neutrophils % (Manual) 71 (37.0-80.0) Band Neutrophils % (Manual) 2 Lymphocytes % (Manual) 17 (10.0-50.0) Monocytes % (Manual) 9 (0-12) Eosinophils % (Manual) 1 (0-7) Basophils % (Manual) 0 (0.0-2.0) Metamyelocytes % (manual) 0 Myelocytes % (Manual) 0 Promyelocytes % (Manual) 0 Blast Cells % (Manual) 0 Reactive Lymphocytes 0 Platelet Estimate Adequate Microcytosis Slight Urine Color Yellow (Yellow) Urine Clarity Clear (Clear) Urine pH 6.0 (5.0-9.0) Urine Specific [place] 1.016 (1.001-1.035) Urine Protein Negative (Negative) Urine Ketones 2+ (Negative) Urine Blood Negative /uL (Negative) Urine Nitrite Negative (Negative) Urine Bilirubin Negative (Negative) Urine Urobilinogen Normal mg/dL (Negative) Urine Leukocyte Esterase Trace /uL (Negative) Urine RBC 3 /hpf (0 - 4) Urine Microscopic WBC 9 /HPF (0-5) Urine Squamous Epithelial Cells Few /hpf (<5) Urine Bacteria Few /hpf (None Seen) Urine Mucus Few (None Seen) Urine Yeast (Budding) Few /hpf (None Seen) Urine Glucose Normal mg/dL (Normal) Influenza Type A Antigen Negative (Negative) Influenza Type B Antigen Negative (Negative) SARS-CoV-2 Antigen (Rapid) Negative (NEGATIVE) Erythrocyte Sedimentation Rate 18 mm/hr (0-20) Test 04/04/25 05:00 04/03/25 04:59 04/02/25 15:12 04/02/25 12:35 C-Reactive Protein High Sensitivity 0.30 mg/dL (<1.0) Total Bilirubin 0.3 mg/dL (0.2-1.0) Aspartate Amino Transferase (AST) 19 U/L (13-40) Alanine Aminotransferase (ALT) < 9 U/L (7-40) Alkaline Phosphatase 69 U/L (46-116) Total Protein 7.4 g/dL (5.7-8.2) Albumin 3.9 g/dL (3.2-4.8) Lactic Acid Level 1.5 mmol/L (0.4-2.0) Troponin I High Sensitivity 4 ng/L (</=34) Ammonia 11 umol/L (11-32) Test 04/02/25 08:45 04/02/25 08:43 Hemoglobin A1c 5.1 % A1C (<5.7) Phosphorus Level 3.0 mg/dL (2.4-5.1) Triglycerides Level 120 mg/dL (< 150) Cholesterol Level 150 mg/dL (< 200) LDL Cholesterol 101 mg/dL (< 100) HDL Cholesterol 28 mg/dL (40-59) Lipase 24 U/L (12-53) Thyroid Stimulating Hormone (TSH) 1.26 uIU/mL (0.55-4.78) Prothrombin Time 11.2 sec (9.3-11.8) Prothrombin Time INR 1.06 (0.9-1.15) Activated Partial Thromboplast Time 25.6 SEC (24.5-34.5) Direct Bilirubin 0.1 mg/dL (<0.3) Vitamin B12 Level 458 pg/mL (211-911) Vitamin D 25-Hydroxy 65.3 ng/mL (30.0-100) Other Laboratory Tests 04/09/25 05:42 Brief Hx & Hospital Course: History of Present Illness Marino Sanchez is a 89 year old female patient who presents to ED via EMS with chief complaint of abdominal pain which started 2 days before her admission. Patient has dementia, obtained HPI and past medical history from EMR (tried to call son 2 times, but he did not answer phone call). Per home health nurse, patient has been experiencing diffused abdominal pain, distention, constipation, nausea, vomiting and poor appetite 2 days before her admission, prompting her to call 911. Per home health nurse, her baseline is A&Ox1. Could not obtain review of systems due to clinical status. Course of hospitalization: Patient was treated with IV antibiotic with Rocephin and Flagyl. Patient's white blood cell count improved. Stool specimens are pending. Patient's abdominal pain has resolved. She is tolerating oral intake. Hypokalemia was repleted. Patient's urine culture was positive for Kristy albicans. Patient was treated with oral Diflucan. Given improvement with the patient's symptoms and increasing leukocytosis, patient will be discharged home and continued on antibiotic therapy with Flagyl 500 mg p.o. t.i.d. for additional five days as well as Diflucan 100 mg p.o. x3 days. She is instructed to continue all previous home medications and follow up with the discharge Clinic in one week. Physical examination General: Alert and Oriented x3. No acute distress. Well-nourished. Eyes: EOMI. Anicteric. HENT: Moist mucous membranes. Lungs: Clear to auscultation bilaterally. No accessory muscle use. Cardiovascular: Regular rate and rhythm. No murmur. No JVD. Abdomen: Soft, non-tender and non-distended. No palpable masses. Extremities: No edema. Non-tender. Skin: No rashes or lesions. Warm. Neurologic: No focal neurological deficits. CN II-XII grossly intact, but not individually tested. Psychiatric: Cooperative. Appropriate mood and affect. Total time spent with patient discussing and formulating plan of care: 35 minutes.. This medical document was created using an electronic medical record system with [employer] dictation system. Although this document has been carefully reviewed, there may still be some phonetic and typographical errors. These areas are purely typographical due to imperfections of the software programs, and do not reflect any compromise in the patient's medical care. Consults/Reason for consult Gastroenterology: Abdominal pain Condition at Discharge: Guarded Final Diagnosis/Problems List Sepsis secondary to infectious colitis -accelerated hypertension -dementia -sepsis -hypokalemia -complicated cystitis Discharge Disposition: Home Discharge Instruct/Medications Diet: Cardiac 2g Na,low cholest Activity: No Restrictions, As Tolerated Follow Up/Referral: Follow up with the discharge Clinic in one week Medications: Continue all previous home medications Flagyl 500 mg p.o. t.i.d. x5 days Scheduled Amlodipine Besylate (Amlodipine Besylate), 5 MG PO DAILY, (Reported) Donepezil Hydrochloride (Donepezil Hcl), 1 TAB PO DAILY, (Reported) Levothyroxine Sodium (Levothyroxine Sodium), 88 MCG PO QAM, (Reported) Metronidazole (Flagyl), 1 TAB PO TID Sertraline Hcl (Sertraline Hcl), 0 PO DAILY, (Reported) Topiramate (Topiramate), 1 TAB PO BID, (Reported) 36 Discharge Statement: "Patient was advised to return to the ER or call 911 if any headaches, dizziness, shortness of breath, chest pain, abdominal pain, bleeding, fevers, or worsening of medical condition. Patient was counseled about treatment plan, medications, possible side effects, patientverbalized understanding. All questions were answered to the best of my ability. This discharge took greater then 30 minutes in planning, reviewing documentation, counseling the patient, and discussing with other team members." ASSESSMENT ASSESSMENT Assessment Sepsis secondary to infectious colitis Date of Service: Apr 09, 2025 Billing Provider: ANA DESIR NP Common Visit Codes: 53510-CSG/OBS DISCH DAY >30min ANA DESIR NP Apr 09, 2025 13:42
--- NOTE | 2025-04-09 15:05 | DVHPN2 ---
Progress Note - Dictate Date Seen: Apr 09, 2025 Has the PT tested + for MRSA If YES, has PT been informed?: No Medical Necessity Reason Pt with a Central, PICC or Fol: No Subjective No new complaints Tolerating full liquid diet No bowel movement recorded yesterday Multiple bowel movements two days Small-bowel series and abdominal x-ray today show no evidence of obstruction with contrast throughout the colon vital signs Vital Sign Date Time Temp Pulse Resp B/P (MAP) Pulse Ox O2 Delivery O2 Flow Rate FiO2 04/09/25 13:00 98.6 80 17 122/80 (94) 97 98.6 04/09/25 08:10 Room Air* 0 21 Total Intake and Output 04/08/25 04/08/25 04/09/25 15:00 23:00 07:00 Intake Total 150 ml 858.6 ml 680 ml Output Total 1400 ml 600 ml Balance 150 ml -541.4 ml 80 ml medications Current Medications Medications Dose Ordered Sig/Sunny Route Start Time Stop Time Status Last Admin Dose Admin Acetaminophen 325 mg Q4HP PRN PO 04/02/25 11:45 04/03/25 18:24 325 MG Ondansetron HCl 4 mg Q4HP PRN IV 04/02/25 11:45 04/06/25 04:53 4 MG Morphine Sulfate 2 mg Q4HPRN PRN IV 04/02/25 11:45 Pantoprazole Sodium 40 mg BID IV 04/02/25 22:00 04/09/25 09:54 40 MG Hydralazine HCl 10 mg Q8HP PRN IV 04/02/25 16:45 04/09/25 08:29 10 MG Ceftriaxone Sodium 50 ml @ 100 mls/hr DAILY@09 IV 04/03/25 09:00 04/09/25 08:38 100 MLS/HR Metronidazole 100 ml @ 100 mls/hr Q8HR IV 04/02/25 06:00 04/09/25 13:32 100 MLS/HR Levothyroxine Sodium 88 mcg QAM@0600 PO 04/04/25 06:00 04/09/25 05:33 88 MCG Metoclopramide HCl 5 mg Q8HR IV 04/05/25 14:00 04/09/25 13:33 5 MG Donepezil HCl 5 mg HS PO 04/06/25 22:00 04/08/25 21:30 5 MG Quetiapine Fumarate 50 mg BID PO 04/06/25 12:00 04/09/25 09:54 50 MG Sertraline HCl 25 mg DAILY PO 04/07/25 10:00 04/09/25 09:54 25 MG Prednisone 40 mg DAILY PO 04/07/25 10:00 04/09/25 09:54 40 MG Amlodipine Besylate 2.5 mg DAILY PO 04/07/25 10:00 04/09/25 09:54 2.5 MG objective General: Sleeping, no acute distress heart: t Regular rate and rhythm Abdomen: soft mild to moderate TTP Ext: no C C E laboratory and microbiology Laboratory Tests 04/09/25 05:42 Test 04/09/25 05:42 Range/Units Serum Glucose 91 74-106 mg/dL Problems(with codes): (1) Sclerosing mesenteritis (2) Nausea and vomiting (3) Sepsis due to urinary tract infection (4) Cholelithiasis Prognosis Plan Advance to pureed diet and if tolerated soft mechanical Discharge planning is in progress to the snf Maintained on stool softeners Dietary Evaluation Review Comments: Nutrition Recommendation: 1) Advance diet as medically feasible 2) Consider TPN if NPO > 7 days Expected Outcomes/Goals: GI symptoms to improve Intake to meet >75% estimated needs FU 2-3 days Plan discussed with: Other (Nurse) JSOE SOTO MD Apr 09, 2025 15:05
[2025-04-09] MEDS: FLUCONAZOLE 100 MG TAB PO ONE (18:47)
[2025-04-09] MEDS: DOCUSATE SOD 100 MG CAP PO SCH (22:09)
[2025-04-10 05:00] VITALS: BP 165/97; PULSE 85; RESP 16; TEMP 97.8; O2SAT 98
[2025-04-10 07:30] VITALS: PULSE 68; RESP 17; O2SAT 98
[2025-04-10 09:09] VITALS: BP 150/90; PULSE 68; RESP 18; TEMP 98.1; O2SAT 99
--- NOTE | 2025-04-10 11:27 | DVHPN2 ---
Subjective Patient states that her abdominal pain has improved. Reviewed: Care Plan, H&P, Labs, Medications, Previous Orders, Radiology, Other Changes from previous H/P or p: No Changes General: Per HPI Objective Vitals Vital Signs Date Time Temp Pulse Resp B/P (MAP) Pulse Ox O2 Delivery O2 Flow Rate FiO2 04/10/25 09:09 98.1 68 18 150/90 (110) 99 98.1 04/09/25 20:00 Room Air* 0 21 Intake/Output Intake and Output 04/10/25 06:59 Intake Total 1075 ml Output Total 1500 ml Balance -425 ml Intake Oral 725 ml IV Total 350 ml Output Urine Total 1500 ml # Voids 6 General Appearance: Alert, Cooperative, No acute distress, Other (Only oriented to person) HEENT: Atraumatic Cardiovascular: Regular rate, Normal S1, Normal S2, No murmurs Abdomen: Normal bowel sounds, Soft, Other (Diffuse tenderness) Neuro: Normal speech, Cranial nerves 3-12 NL Skin: Dry, Intact Psych/Mental Status: Mental status NL, Mood NL Medications Current Medications Medications Dose Ordered Sig/Sunny Route Start Time Stop Time Status Last Admin Dose Admin Acetaminophen 325 mg Q4HP PRN PO 04/02/25 11:45 04/03/25 18:24 325 MG Ondansetron HCl 4 mg Q4HP PRN IV 04/02/25 11:45 04/06/25 04:53 4 MG Morphine Sulfate 2 mg Q4HPRN PRN IV 04/02/25 11:45 Pantoprazole Sodium 40 mg BID IV 04/02/25 22:00 04/10/25 09:01 40 MG Hydralazine HCl 10 mg Q8HP PRN IV 04/02/25 16:45 04/10/25 05:00 10 MG Ceftriaxone Sodium 50 ml @ 100 mls/hr DAILY@09 IV 04/03/25 09:00 04/10/25 08:59 100 MLS/HR Metronidazole 100 ml @ 100 mls/hr Q8HR IV 04/02/25 06:00 04/10/25 05:34 100 MLS/HR Levothyroxine Sodium 88 mcg QAM@0600 PO 04/04/25 06:00 04/10/25 05:35 88 MCG Metoclopramide HCl 5 mg Q8HR IV 04/05/25 14:00 04/10/25 05:35 5 MG Donepezil HCl 5 mg HS PO 04/06/25 22:00 04/09/25 22:10 5 MG Quetiapine Fumarate 50 mg BID PO 04/06/25 12:00 04/10/25 09:00 50 MG Sertraline HCl 25 mg DAILY PO 04/07/25 10:00 04/10/25 09:00 25 MG Prednisone 40 mg DAILY PO 04/07/25 10:00 04/10/25 09:00 40 MG Amlodipine Besylate 2.5 mg DAILY PO 04/07/25 10:00 04/10/25 09:01 2.5 MG Docusate Sodium 100 mg BID PO 04/09/25 22:00 04/10/25 09:00 100 MG Laboratory Results Laboratory Tests 04/09/25 05:42 Urinalysis Test 04/05/25 18:30 Urine Color Yellow (Yellow) Urine Clarity Clear (Clear) Urine pH 6.0 (5.0-9.0) Urine Specific [place] 1.016 (1.001-1.035) Urine Protein Negative (Negative) Urine Ketones 2+ (Negative) H Urine Blood Negative /uL (Negative) Urine Nitrite Negative (Negative) Urine Bilirubin Negative (Negative) Urine Urobilinogen Normal mg/dL (Negative) Urine Leukocyte Esterase Trace /uL (Negative) Urine RBC 3 /hpf (0 - 4) Urine Microscopic WBC 9 /HPF (0-5) H Urine Squamous Epithelial Cells Few /hpf (<5) Urine Bacteria Few /hpf (None Seen) H Urine Mucus Few (None Seen) Urine Yeast (Budding) Few /hpf (None Seen) Urine Glucose Normal mg/dL (Normal) Microbiology Microbiology Date/Time Source Procedure Growth Status 04/05/25 18:30 Nose MRSA Screen - Final Complete 04/05/25 18:30 Urine - [place] Urine Culture - Final Presumptive Kristy albicans Complete 04/02/25 12:35 Blood Blood Culture - Final NO GROWTH AFTER 5 DAYS OF INCUBATION. Complete Labs and/or images reviewed: Labs reviewed by me, Image(s) reviewed by me Assessment/Plan Assessment/Plan Impression: -abdominal pain, probably secondary to infectious colitis -accelerated hypertension -dementia -sepsis -hypokalemia Plan: Events: No events overnight. Patient's discharge was held secondary to transportation as well as new recommendation for physical therapy at home. Social service consultation has been placed for [facility] with PT. Estimated transportation time is noted to be 6:00 p.m. tonight. -continue antibiotic therapy -stool specimen -potassium replacement -GI consultation -repeat labs in a.m. Total time spent with patient discussing and formulating plan of care: 35 minutes. This medical document was created using an electronic medical record system with [employer] dictation system. Although this document has been carefully reviewed, there may still be some phonetic and typographical errors. These areas are purely typographical due to imperfections of the software programs, and do not reflect any compromise in the patient's medical care. Plan discussed with: Patient, Other (RN) My Orders Orders - ANA DESIR NP Procedure Category Date Status Time Discharge DISCHARGE 04/10/25 Transmitted 10:21 * [employer] CONS 04/10/25 Transmitted Consult Date of Service: Apr 10, 2025 Billing Provider: ANA DESIR NP Common Visit Codes: [id number] INP/OBS CARE(HIGH) ANA DESIR NP Apr 10, 2025 11:27
[2025-04-10 12:57] VITALS: BP 147/83; PULSE 85; RESP 18; TEMP 98; O2SAT 97
--- NOTE | 2025-04-10 14:12 | DVHPN2 ---
Progress Note - Dictate Date Seen: Apr 10, 2025 Has the PT tested + for MRSA If YES, has PT been informed?: No Medical Necessity Reason Pt with a Central, PICC or Fol: No Subjective No new complaints Tolerating softdiet No bowel movement recorded yesterday Multiple bowel movements two days ago Small-bowel series and abdominal x-ray today show no evidence of obstruction with contrast throughout the colon vital signs Vital Sign Date Time Temp Pulse Resp B/P (MAP) Pulse Ox O2 Delivery O2 Flow Rate FiO2 04/10/25 12:57 98.0 85 18 147/83 (104) 97 98.0 04/10/25 07:30 Room Air* 0 21 Total Intake and Output 04/09/25 04/09/25 04/10/25 15:00 23:00 07:00 Intake Total 150 ml 350 ml 575 ml Output Total 1500 ml Balance 150 ml 350 ml -925 ml medications Current Medications Medications Dose Ordered Sig/Sunny Route Start Time Stop Time Status Last Admin Dose Admin Acetaminophen 325 mg Q4HP PRN PO 04/02/25 11:45 04/03/25 18:24 325 MG Ondansetron HCl 4 mg Q4HP PRN IV 04/02/25 11:45 04/06/25 04:53 4 MG Morphine Sulfate 2 mg Q4HPRN PRN IV 04/02/25 11:45 Pantoprazole Sodium 40 mg BID IV 04/02/25 22:00 04/10/25 09:01 40 MG Hydralazine HCl 10 mg Q8HP PRN IV 04/02/25 16:45 04/10/25 05:00 10 MG Ceftriaxone Sodium 50 ml @ 100 mls/hr DAILY@09 IV 04/03/25 09:00 04/10/25 08:59 100 MLS/HR Metronidazole 100 ml @ 100 mls/hr Q8HR IV 04/02/25 06:00 04/10/25 05:34 100 MLS/HR Levothyroxine Sodium 88 mcg QAM@0600 PO 04/04/25 06:00 04/10/25 05:35 88 MCG Metoclopramide HCl 5 mg Q8HR IV 04/05/25 14:00 04/10/25 05:35 5 MG Donepezil HCl 5 mg HS PO 04/06/25 22:00 04/09/25 22:10 5 MG Quetiapine Fumarate 50 mg BID PO 04/06/25 12:00 04/10/25 09:00 50 MG Sertraline HCl 25 mg DAILY PO 04/07/25 10:00 04/10/25 09:00 25 MG Prednisone 40 mg DAILY PO 04/07/25 10:00 04/10/25 09:00 40 MG Amlodipine Besylate 2.5 mg DAILY PO 04/07/25 10:00 04/10/25 09:01 2.5 MG Docusate Sodium 100 mg BID PO 04/09/25 22:00 04/10/25 09:00 100 MG objective General: Sleeping, no acute distress heart: t Regular rate and rhythm Abdomen: soft mild to moderate TTP Ext: no C C E laboratory and microbiology Laboratory Tests 04/09/25 05:42 Test 04/09/25 05:42 Range/Units Serum Glucose 91 74-106 mg/dL Problems(with codes): (1) Colitis (2) Cholelithiasis (3) Sclerosing mesenteritis (4) Nausea and vomiting (5) Sepsis due to urinary tract infection Prognosis Plan Advance diet as tolerated Stool softeners daily and MiraLax as needed Discharge planning is in progress to the snf Dietary Evaluation Review Comments: Nutrition Recommendation: 1) Advance diet as medically feasible 2) Consider TPN if NPO > 7 days Expected Outcomes/Goals: GI symptoms to improve Intake to meet >75% estimated needs FU 2-3 days Plan discussed with: Other (Nurse) JOSE SOTO MD Apr 10, 2025 14:12
== END 2025-04-10 16:10 | disposition hospice, home (50) | DRG 872 ==
LOC: EDBD 08:11 → ER 08:11 → OVERFLOW 11:37 → TELE-CENTR 16:17 → CENTRAL 04-08 11:17
PROVIDERS: ADMIT Nurse Practitioner Acute Care; ATTEND Nurse Practitioner Acute Care
DX: A41.9 Sepsis, unspecified organism (principal); K65.4 Sclerosing mesenteritis; Z51.5 Encounter for palliative care; N30.90 Cystitis, unspecified without hematuria; F03.918 Unspecified dementia, unspecified severity, with other behavioral disturbance; I10 Essential (primary) hypertension; E03.9 Hypothyroidism, unspecified; A09 Infectious gastroenteritis and colitis, unspecified; E87.6 Hypokalemia; K57.30 Diverticulosis of large intestine without perforation or abscess without bleeding; K59.00 Constipation, unspecified; Z79.899 Other long term (current) drug therapy
CPT/HCPCS: 36415; 71045; 74018; 74176; 74250; 80048; 80053; 80061; 80076; 81001; 82140; 82306; 82607; 83036; 83605; 83690; 83735; 84100; 84443; 84484; 85007; 85025; 85027; 85610; 85652; 85730; 86141; 87040; 87081; 87086; 87088; 87186; 87426; 87804; 93005; 93306; 97110; 97116; 97162; 97530; 99291; 99292; G0378; J2003; J2405; J2470; J3490